=== PATIENT | male | born 1940 | race Caucasian/White ===

== ENCOUNTER → 2018-03-31 09:25 | Outpatient (CLI) | payer OTHER, SELFPAY ==
[2018-03-31 11:27] LABS: ALT 26 U/L (12-78); AST 16 U/L (15-37); Albumin 3.8 g/dL (3.4-5.0); Alkaline Phosphatase 71 U/L (46-116); Anion Gap 10.1 mmol/L (3-11); BUN 17 mg/dL (7-18); CO2 28.9 mmol/L (21.0-32.0); CREATININE 1.21 mg/dL (0.70-1.30); Calcium 8.4 mg/dL (8.5-10.1); Chloride 104 mmol/L (98-107); Cholesterol 109 mg/dL (50-200); Estimated GFR 58.15 (mL/min/1.73m2); Glucose 146 mg/dL (70-100); HDL Cholesterol 41 mg/dL (40-60); LDL CHOLESTEROL 62 mg/dL (<100); Potassium 4.1 mmol/L (3.5-5.1); Sodium 143 mmol/L (136-145); Total Protein 7.1 g/dL (6.4-8.2); Triglyceride 72 mg/dL (30-150)
[2018-03-31 11:31] LABS: COMMENT (LAB VIEW ONLY) 141.65 mg/dL; Microalb ug/mg Crea 14.3 ug/mg Cr
[2018-03-31 11:38] LABS: Hemoglobin A1C 7.6 % (4.5-6.2)
== END ==
PROVIDERS: PCP Nurse Practitioner; Visit Provider Nurse Practitioner
DX: E11.9 Type 2 diabetes mellitus without complications (principal); E78.5 Hyperlipidemia, unspecified; I10 Essential (primary) hypertension
CPT/HCPCS: 36415; 80053; 80061; 83721; 82043; 82570; 83036

== ENCOUNTER 2019-03-04 09:38 | Outpatient (CLI) | payer OTHER, SELFPAY ==
[2019-03-04 10:04] LABS: HCT 42.2 % (40.0-50.0); HGB 14.2 g/dL (13.5-17.5); Mean Corp. HGB Concentration 33.6 g/dL (32.0-36.0); Mean Corpuscular Hemoglobin 32.1 pg (27.0-33.0); Mean Corpuscular Volume 95.5 fL (80-95); Mean Platelet Volume 10.9 fL (8.0-11.0); Platelet Count 212 x1000/uL (130-400); RBC 4.42 m/cumm (4.50-6.00); RBC Distribution Width 13.2 % (11.8-14.1); White Blood Cell Count 7.16 k/cumm (4.4-10.8)
[2019-03-04 10:26] LABS: COMMENT (LAB VIEW ONLY) 108.52 mg/dL; Microalb ug/mg Crea 14.6 ug/mg Cr
[2019-03-04 12:42] LABS: ALT 34 U/L (12-78); AST 16 U/L (15-37); Albumin 3.7 g/dL (3.4-5.0); Alkaline Phosphatase 77 U/L (46-116); Anion Gap 11.5 mmol/L (3-11); BUN 23 mg/dL (7-18); Bilirubin, Total 0.6 mg/dL (0.2-1.0); CO2 26.5 mmol/L (21.0-32.0); CREATININE 1.23 mg/dL (0.70-1.30); Calcium 8.6 mg/dL (8.5-10.1); Calculated LDL 69 mg/dL; Chloride 105 mmol/L (98-107); Cholesterol 115 mg/dL (50-200); Estimated GFR 56.91 (mL/min/1.73m2); Glucose 177 mg/dL (70-100); HDL Cholesterol 39 mg/dL (40-60); Potassium 4.3 mmol/L (3.5-5.1); Sodium 143 mmol/L (136-145); Total Protein 6.9 g/dL (6.4-8.2); Triglyceride 36 mg/dL (30-150)
== END 2019-03-04 09:58 ==
PROVIDERS: PCP Nurse Practitioner; Visit Provider Nurse Practitioner
DX: E11.9 Type 2 diabetes mellitus without complications (principal); E66.9 Obesity, unspecified; E78.5 Hyperlipidemia, unspecified; I10 Essential (primary) hypertension; R71.8 Other abnormality of red blood cells
CPT/HCPCS: 36415; 80053; 80061; 83721; 85027; 82043; 82570

== ENCOUNTER → 2019-06-11 10:50 | Outpatient (BNVA) | payer OTHER, SELFPAY | PROVIDERS: PCP Nurse Practitioner; Referring Provider Nurse Practitioner; Visit Provider Physical Therapy Assistant | DX: Z12.11 Encounter for screening for malignant neoplasm of colon (principal); Z86.010 Personal history of colon polyps; E11.9 Type 2 diabetes mellitus without complications; Z79.84 Long term (current) use of oral hypoglycemic drugs; I10 Essential (primary) hypertension ==

== ENCOUNTER 2019-07-01 08:05 | Day surgery (SDC) | payer OTHER, SELFPAY ==
--- NOTE | 2019-06-30 19:19 | W.COLOREPORT ---
Date of service: 07/01/19 Colonoscopy Report Date of procedure: 07/01/19 Pre-op diagnosis general: hx of A. polyps Post-op diagnosis procedure note: other (few sm diveric. no polyps) Procedure: CE Surgeon: Louisa Velazquez Anesthesia proc note operative: GETA Estimated blood loss (mL): 0 Pathology: none sent Disposition: same day Prep: Miralax/Dulcolax Retraction Time: 11 mins Procedure Description: INDICATIONS: The patient is here today at the request of their PCP and is here today for a colonoscopy for hx of A. polyps. Informed consent was obtained, explaining the risks and benefits of the procedure, including but not limited to bleeding, infection, perforation, aspiration, complications from the anesthesia. DESCRIPTION OF PROCEDURE: The patient was brought to the endoscopy suite and placed in left lateral decubitus position. Anesthesia was administered per the Department of Anesthesia, with constant monitoring of all vital signs. Digital rectal exam was performed prior to beginning the procedure and revealed no anal or rectal pathology. There was good sphincter tone. No internal or external hemorrhoids are noted. There is some mild excoriation to the anal region. The previously lubricated Olympus was inserted in the rectum and insufflation was begun. The scope was passed up through the recto-sigmoid valves, through the sigmoid and transverse, down the ascending and the cecum was achieved at 90 cm. Good prep was noted. The scope was then withdrawn. There were no AVM,s , or polyps noted. He has a few small scattered diverticula in the sigmoid colon. He has no signs of active bleeding or infection. The mucosa and vasculature appears pink healthy and normal. The patient tolerated the procedure without complicated and transferred to the recovery room in stable condition. Colonoscopy does not need to be repeated. Louisa Velazquez DO
[2019-07-01 08:10] VITALS: BP 140/68; PULSE 80; RESP 16; TEMP 36.7; O2SAT 96
[2019-07-01] MEDS: Lactated Ringers 1,000 ML 80 ML IV (08:43)
--- NOTE | 2019-07-01 11:37 | W.PM.DSUDISC ---
Discharge Plan Disposition Condition: Good Discharge Details Reason For Visit: HX OF COLONIC POLYPS Attending Provider: Louisa Velazquez Primary Care Provider: Ngozi Silva Home Meds and New Rx's Prescriptions: Continued metformin 500 mg tablet 1,000 mg PO BID Qty: 360 RF: 3 triamcinolone acetonide 15 GM cream 1 gm Topical BID Qty: 15 RF: 0 (DME) OneTouch Ultra Blue Test Strip strip See Dose Instructions .ROUTE .MEDSUPPLY Qty: 100 RF: 6 atorvastatin 40 mg tablet 40 mg PO DAILY Qty: 90 RF: 3 hydrochlorothiazide 25 mg tablet 25 mg PO DAILY Qty: 90 RF: 3 lisinopril 10 mg tablet 10 mg PO DAILY Qty: 90 RF: 3 Discontinued polyethylene glycol 3350 17 gram/dose powder 238 g PO ONCE Qty: 238 RF: 0 bisacodyl [Dulcolax (bisacodyl)] 5 mg tablet,delayed release (DR/EC) 5 mg PO ONCE Qty: 4 RF: 0 aspirin 81 mg tablet,delayed release (DR/EC) 81 mg PO DAILY RF: 0 Discharge Instructions Instructions: High Fiber Diet (DC) Additional Instructions: Findings:few small scattered diverticula no polyps Follow up: does not require any further colonoscopy's Please call if you develop: fevers >101.5 Nausea or Vomiting Abdominal pain that is not transient DAY SURGERY UNIT POST COLONOSCOPY INSTRUCTIONS 1. Because there will be medication in your system for the next 24 hours, you may feel a little sleepy. Your coordination will be affected. Therefore: a. Do not drive or operate dangerous equipment for 24 hours. b. Do not drink alcohol beverages for 24 hours (not even beer). c. Plan to go home and rest for the day. 2. Generally there are no restrictions on your activity after a day or so has gone by, but you may feel a bit fatigued for a few days. 3 After you arrive home you may have a light meal and return to a normal diet as you can tolerate it without feeling sick to your stomach. 4. After surgery, you may feel pain or discomfort. This should be only transient, but if it persists please contact your doctor. 5. If there are any questions regarding the findings of your procedure, please feel free to contact your doctor. 6. If you are unable to contact your doctor with a problem, contact the hospital at [phone]. 7. Continue all your regular medications unless directed otherwise. I understand the above instructions and have no questions. Signature of Patient or Responsible Adult Escort Date/Time Name of Responsible Adult Escort Signature of Nurse Date/Time DS: Diagnosis Discharge Diagnosis (1) Tubular adenoma of colon: Status: Acute (2) Diverticula of colon: Status: Acute
[2019-07-01 11:52] VITALS: BP 112/62; PULSE 68; RESP 16; TEMP 36.7; O2SAT 95
== END 2019-07-01 12:47 ==
PROVIDERS: PCP Nurse Practitioner; Visit Provider Surgery
PROC: 0DJD8ZZ Inspection of Lower Intestinal Tract, Via Natural or Artificial Opening Endoscopic (ICD-10-PCS; CPT 45378; principal; 2019-07-01 09:15)
DX: K57.30 Diverticulosis of large intestine without perforation or abscess without bleeding; Z12.11 Encounter for screening for malignant neoplasm of colon; Z86.010 Personal history of colon polyps; I10 Essential (primary) hypertension; E11.9 Type 2 diabetes mellitus without complications; Z79.84 Long term (current) use of oral hypoglycemic drugs
CPT/HCPCS: G0121

== ENCOUNTER 2019-10-19 00:25 | Outpatient (CLI) | payer OTHER, SELFPAY ==
--- NOTE | 2019-10-19 06:45 | DI.US_ITS ---
EXAM: US AAA SCREENING CLINICAL HISTORY: SCREENING FOR AAA, EX SMOKER, Z87.891 COMPARISON: No exams were available for comparison FINDINGS: Abdominal Aorta: Proximal: 2.8 x 2.6 cm Mid: 2.0 x 1.8 cm Distal: 1.9 x 1.7 cm Iliac's: Right: 1 x 1.3 cm Left: 1 x 1.2 cm The doppler velocities are within normal limits. IMPRESSION: No evidence of abdominal aortic aneurysm. DATA REPOSITORY:
[2019-10-19 08:48] LABS: ALT 26 U/L (16-63); AST 18 U/L (15-37); Albumin 3.8 g/dL (3.4-5.0); Alkaline Phosphatase 65 U/L (46-116); Anion Gap 7.2 mmol/L (3-11); BUN 27 mg/dL (7-18); Bilirubin, Total 0.9 mg/dL (0.2-1.0); CO2 28.8 mmol/L (21.0-32.0); CREATININE 1.21 mg/dL (0.70-1.30); Calcium 8.6 mg/dL (8.5-10.1); Calculated LDL 73 mg/dL (<100); Chloride 107 mmol/L (98-107); Cholesterol 125 mg/dL (<200); Glucose 168 mg/dL (74-106); HDL Cholesterol 39 mg/dL (40-60); Sodium 143 mmol/L (136-145); Total Protein 6.9 g/dL (6.4-8.2); Triglyceride 67 mg/dL (<150)
== END 2019-10-19 00:45 ==
PROVIDERS: PCP Nurse Practitioner; Visit Provider Nurse Practitioner
DX: Z13.6 Encounter for screening for cardiovascular disorders (principal); Z87.891 Personal history of nicotine dependence; E11.9 Type 2 diabetes mellitus without complications; E78.5 Hyperlipidemia, unspecified; I10 Essential (primary) hypertension
CPT/HCPCS: 36415; 76706; 80053; 80061

== ENCOUNTER 2020-07-11 13:41 | Outpatient (REF) | payer OTHER, SELFPAY ==
[2020-07-11 19:39] LABS: COMMENT (LAB VIEW ONLY) 115.81 mg/dL; Microalb ug/mg Crea 9.8 ug/mg Cr
== END 2020-07-11 14:01 ==
LOC: LBN 13:41
PROVIDERS: PCP Nurse Practitioner; Visit Provider Nurse Practitioner
DX: E11.9 Type 2 diabetes mellitus without complications (principal)
CPT/HCPCS: 82043; 82570

== ENCOUNTER 2020-10-11 04:31 | Outpatient (CLI) | payer OTHER, SELFPAY ==
[2020-10-11 09:32] LABS: HCT 39.9 % (40.0-50.0); HGB 13.4 g/dL (13.5-17.5); MCH 32.3 pg (27.0-33.0); MCHC 33.6 % (32.0-36.0); MCV 96.1 fL (80-95); MPV 10.8 fL (8.0-11.0); Platelet Count 223 10^3/uL (130-400); RBC 4.15 10^6/uL (4.36-5.78); RDW 13.2 % (11.8-14.1); RDW-SD 46.8 fL; WBC 7.78 10^3/uL (4.4-10.8)
[2020-10-11 09:35] LABS: Hemoglobin A1C 6.6 % (<5.7)
[2020-10-11 10:08] LABS: ALT 28 U/L (16-63); AST 18 U/L (15-37); Albumin 3.6 g/dL (3.4-5.0); Alkaline Phosphatase 77 U/L (46-116); Anion Gap 7.3 mmol/L (3-11); BUN 25 mg/dL (7-18); Bilirubin, Total 1.1 mg/dL (0.2-1.0); CO2 28.7 mmol/L (21.0-32.0); CREATININE 1.2 mg/dL (0.70-1.30); Calcium 8.9 mg/dL (8.5-10.1); Calculated LDL 50 mg/dL (<100); Chloride 108 mmol/L (98-107); Cholesterol 116 mg/dL (<200); Glucose 107 mg/dL (74-106); HDL Cholesterol 38 mg/dL (40-60); Sodium 144 mmol/L (136-145); Total Protein 6.9 g/dL (6.4-8.2); Triglyceride 144 mg/dL (<150)
== END 2020-10-11 04:32 | disposition home or self-care (01) ==
LOC: LBO 04:31
PROVIDERS: PCP Nurse Practitioner; Visit Provider Nurse Practitioner
DX: E78.5 Hyperlipidemia, unspecified (principal); E11.9 Type 2 diabetes mellitus without complications; I10 Essential (primary) hypertension
CPT/HCPCS: 36415; 80053; 80061; 85027; 83036

== ENCOUNTER 2021-11-07 02:58 | Outpatient (CLI) | payer MEDICARE, SELFPAY ==
[2021-11-07 08:56] LABS: HCT 39.7 % (40.0-50.0); HGB 12.7 g/dL (13.5-17.5); MCH 31.8 pg (27.0-33.0); MCV 99.5 fL (80-95); MPV 10.6 fL (8.0-11.0); Platelet Count 200 10^3/uL (130-400); RBC 3.99 10^6/uL (4.36-5.78); RDW-SD 48.1 fL; WBC 7.33 10^3/uL (4.4-10.8)
[2021-11-07 09:19] LABS: Hemoglobin A1C 7.1 % (<5.7)
[2021-11-07 10:07] LABS: ALT 30 U/L (16-63); AST 16 U/L (15-37); Albumin 3.7 g/dL (3.4-5.0); Alkaline Phosphatase 78 U/L (46-116); Anion Gap 6.3 mmol/L (3-11); BUN 18 mg/dL (7-18); Bilirubin, Total 0.9 mg/dL (0.2-1.0); CO2 29.7 mmol/L (21.0-32.0); CREATININE 1.3 mg/dL (0.70-1.30); Calcium 8.5 mg/dL (8.5-10.1); Chloride 108 mmol/L (98-107); Estimated GFR 53.12 (mL/min/1.73m2); Glucose 146 mg/dL (74-106); Potassium 4.6 mmol/L (3.5-5.1); Sodium 144 mmol/L (136-145); Total Protein 6.7 g/dL (6.4-8.2)
[2021-11-08 14:28] LABS: Calculated LDL 65 mg/dL (<100); Cholesterol 124 mg/dL (<200); HDL Cholesterol 40 mg/dL (40-60); Triglyceride 95 mg/dL (<150)
== END 2021-11-07 02:59 | disposition home or self-care (01) ==
LOC: LBO 02:59
PROVIDERS: PCP Nurse Practitioner; Visit Provider Nurse Practitioner
DX: E11.9 Type 2 diabetes mellitus without complications (principal); E78.5 Hyperlipidemia, unspecified; I10 Essential (primary) hypertension
CPT/HCPCS: 36415; 80053; 80061; 85027; 83036

== ENCOUNTER 2022-06-21 14:25 | Emergency (ER) | payer MEDICARE, SELFPAY ==
[2022-06-21 14:59] VITALS: BP 130/57; PULSE 92; RESP 18; TEMP 37.6; O2SAT 97
--- NOTE | 2022-06-21 15:00 | DI.RAD_ITS ---
Exam(s) XR LUMBAR SPINE AP, LAT EXAM: XR LUMBAR SPINE AP, LAT CLINICAL HISTORY: fall one month ago, back pain. TECHNIQUE: 2D digital imaging was performed. COMPARISON: MR MRI - LUMBAR SPINE WO CONTRAST from 11/03/2008 CR LUMBAR SPINE COMPLETE from 07/22/2011 FINDINGS: 3 views No evidence of fracture or listhesis. Disc space narrowing at L4-5 and L5-S1 level appears stable. Bone density is age-appropriate. No osseous lesions. Calcification is noted in the abdominal aorta and iliac arteries. IMPRESSION: As above but minimal change from prior study 2010. DATA REPOSITORY: RADIATION DOSE DELIVERED:
--- NOTE | 2022-06-21 15:13 | W.ED.GENAD ---
Discharge Plan Disposition Patient Disposition: HOME Condition: Stable Discharge Details Clinical Impression: Narrowing of lumbar intervertebral disc space Primary Care Provider: Ngozi Silva ED Provider: Ralph Alicia Home Meds and New Rx's Prescriptions: New lidocaine [Lidoderm] 5 % adhesive patch,medicated 1 patch topical DAILY PRNQty: 15 0RF Rx Instructions: leave on most painful area for up to 12 hrs cyclobenzaprine 5 mg tablet 5 mg PO QHS PRN (Reason: muscle spasm) Qty: 7 0RF No Action tamsulosin 0.4 mg capsule 0.8 mg PO DAILY Qty: 180 3RF triamcinolone acetonide 15 GM cream 1 gm Topical BID Qty: 15 0RF Rx Instructions: Apply to rash between 3rd and 4th fingers left hand. (DME) GertrudeTouch Ultra Blue Test Strip Strip See Dose Instructions .ROUTE .MEDSUPPLY Qty: 100 6RF Dose Instruction: As directed Rx Instructions: Test TID and PRN. citalopram 20 mg tablet See Rx Instructions .ROUTE .COMPLEX Qty: 90 3RF Dose Instruction: TAKE ONE TABLET BY MOUTH EVERY DAY Rx Instructions: TAKE ONE TABLET BY MOUTH EVERY DAY glipizide 2.5 mg tablet extended release 24hr 2.5 mg PO DAILY Qty: 90 3RF lisinopril 10 mg tablet See Rx Instructions .ROUTE .COMPLEX Qty: 90 3RF Dose Instruction: TAKE ONE TABLET BY MOUTH EVERY DAY Rx Instructions: TAKE ONE TABLET BY MOUTH EVERY DAY atorvastatin 40 mg tablet See Rx Instructions .ROUTE .COMPLEX Qty: 90 3RF Dose Instruction: TAKE ONE TABLET BY MOUTH EVERY DAY Rx Instructions: TAKE ONE TABLET BY MOUTH EVERY DAY metformin 500 mg tablet See Rx Instructions .ROUTE .COMPLEX Qty: 360 3RF Dose Instruction: TAKE TWO TABLETS BY MOUTH TWICE A DAY Rx Instructions: TAKE TWO TABLETS BY MOUTH TWICE A DAY hydrochlorothiazide 25 mg tablet See Rx Instructions .ROUTE .COMPLEX Qty: 90 3RF Dose Instruction: TAKE ONE TABLET BY MOUTH EVERY DAY Rx Instructions: TAKE ONE TABLET BY MOUTH EVERY DAY Medical Decision Making 81-year-old male presents with 1 month of lower back discomfort radiating down both legs worse with bending forward and standing from a seated position, no bowel or bladder incontinence afebrile nontoxic no midline spinal tenderness, of note patient did have a fall 1 month ago in the [facility], has been ambulatory since this event. Patient has no strength and sensation bilateral lower extremities, full range of motion no signs of trauma. Likely lumbar nerve impingement leading to symptoms of sciatica. Low suspicion for acute spinal cord impingement or spinal fracture however given age and persistent symptomatology will obtain lumbar x-ray, will trial anti-inflammatory with dexamethasone and Lidoderm patch. Likely discharge home with follow-up 16: 58 resting comfortably no acute distress. Lumbar spine age-related changes without acute fracture. Patient given home care instructions and return precautions. HPI General Date/Time Provider Initiated Documentation: 06/21/22 15:12. HPI Narrative: 81-year-old male presents with 1 month of lower back discomfort rating to bilateral lower extremities, he describes them as quick painful joints down both legs worse with bending over and standing up. Denies bowel or bladder incontinence. Endorses a fall approximately 1 to 2 months ago in the [facility]. Has been ambulatory without issue. Related Data Home Medications Medication Instructions Recorded Confirmed triamcinolone acetonide 0.1 % 1 gm topical BID #15 grams 09/29/17 06/21/22 topical cream blood sugar diagnostic #100 ea 10/15/21 06/21/22 tamsulosin 0.4 mg capsule 0.8 mg PO DAILY #180 caps 11/12/21 06/21/22 citalopram 20 mg tablet See Rx Instructions .Route 12/11/21 06/21/22 .COMPLEX #90 tabs glipizide 2.5 mg tablet, extended 2.5 mg PO DAILY #90 tabs 03/19/22 06/21/22 release 24 hr atorvastatin 40 mg tablet See Rx Instructions .Route 04/22/22 06/21/22 .COMPLEX #90 tabs hydrochlorothiazide 25 mg tablet See Rx Instructions .Route 04/22/22 06/21/22 .COMPLEX #90 tabs lisinopril 10 mg tablet See Rx Instructions .Route 04/22/22 06/21/22 .COMPLEX #90 tabs metformin 500 mg tablet See Rx Instructions .Route 04/22/22 06/21/22 .COMPLEX #360 tabs cyclobenzaprine 5 mg tablet 5 mg PO QHS PRN muscle spasm #7 06/21/22 tabs lidocaine 5 % topical patch 1 patch topical DAILY PRN #15 ea 06/21/22 (Lidoderm) Previous Rx's Medication Instructions Recorded triamcinolone acetonide 0.1 % 1 gm topical BID #15 grams 09/29/17 topical cream blood sugar diagnostic #100 ea 10/15/21 tamsulosin 0.4 mg capsule 0.8 mg PO DAILY #180 caps 11/12/21 citalopram 20 mg tablet See Rx Instructions .Route 12/11/21 .COMPLEX #90 tabs glipizide 2.5 mg tablet, extended 2.5 mg PO DAILY #90 tabs 03/19/22 release 24 hr atorvastatin 40 mg tablet See Rx Instructions .Route 04/22/22 .COMPLEX #90 tabs hydrochlorothiazide 25 mg tablet See Rx Instructions .Route 04/22/22 .COMPLEX #90 tabs lisinopril 10 mg tablet See Rx Instructions .Route 04/22/22 .COMPLEX #90 tabs metformin 500 mg tablet See Rx Instructions .Route 04/22/22 .COMPLEX #360 tabs cyclobenzaprine 5 mg tablet 5 mg PO QHS PRN muscle spasm #7 06/21/22 tabs lidocaine 5 % topical patch 1 patch topical DAILY PRN #15 ea 06/21/22 (Lidoderm) Allergies Allergy/AdvReac Type Severity Reaction Status Date / Time No Known Allergies Allergy Verified 06/21/22 15:03 General Stated Complaint: Nk/Back Pain ALISSA: 4 Review of Systems Narrative: Review of Systems Constitutional: negative Eyes: negative ENT: negative Cardiovascular: negative Respiratory: negative Gastrointestinal: negative : negative Musculoskeletal: Back pain, leg pain Skin: negative Neurologic: negative Psych: negative PFSH All Active Problems (Updated 06/21/22 @ 17:00 by Ralph Alicia MD) Narrowing of lumbar intervertebral disc space (Acute) Depression (Chronic) Depressive disorder (Chronic 10/22/11) Urinary hesitancy due to benign prostatic hyperplasia (Acute) Diverticula of colon (Acute) Tubular adenoma of colon (Acute 06/26/15) Type II diabetes mellitus (Acute 12/29/12) A1C goal 7.5 Erectile dysfunction (Acute 10/22/11) Essential hypertension (Acute 12/29/12) FRS 30% Hyperlipidemia (Acute 12/24/12) PCEq risk 40%;baseline LDL 140 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) RBC microcytosis (Acute 12/30/12) NL B12 04/2005 Obesity (Acute 12/31/13) Other and unspecified hyperlipidemia (Acute 12/24/12) PCEq risk 40%;baseline LDL 140 Medical History (Updated 06/21/22 @ 17:00 by Ralph Alicia MD) Colonoscopy refused (04/06/18) Depressive disorder, not elsewhere classified (10/22/11) High cholesterol Hypertension Surgical History (Updated 07/23/19 @ 14:01 by Idania Park RN) Arthroscopy L knee History of colonoscopy (~06/2019) Social History (Updated 10/12/19 @ 09:46 by Marlin Grubbs RN) Smoking/Tobacco Use Status: Former Tobacco Use Smoking risk assessment performed?: Yes Alcohol Intake: current Drug use: Never Substance use type: does not use What type of physical activity do you participate in: other Details: snow shoveling Do you feel safe at home: Yes Do you feel safe in your relationship?: Yes Exam Narrative Exam Narrative: Physical Examination General: alert, awake, cooperative, resting comfortably, no acute distress HEENT: normocephalic, atraumatic; PERRL, EOM intact, conjunctiva normal; no nasal discharge; moist mucous membranes, oral and pharyngeal mucosa normal, tolerating secretions Neck: supple, trachea midline; full ROM Chest: normal to inspection Respiratory: normal respiratory effort, speaking in full sentences, clear to auscultation, no wheezing, rales or rhonchi Cardiac: regular rate, regular rhythm, S1S2 intact, no murmurs rubs or gallops GI: abdomen soft, non-tender, non-distended; no palpable mass or hepatosplenomegaly Back: No midline spinal tenderness crepitus or deformity Skin: no lesions, rashes or trauma appreciated Neuro: AAOx3, normal speech, moving all extremities; 5 out of 5 strength upper and lower extremities, ambulatory without assistance, reproduction of symptoms when going from a seated to a standing position or bending forward Extremities: Movement/range of motion intact bilateral lower extremities no signs of trauma Psych: Appropriate mood and affect Course Vital Signs Vital signs: Vital Signs Temperature 37.6 C H 06/21/22 14:59 Pulse 92 H 06/21/22 14:59 Respiratory Rate 18 06/21/22 14:59 Blood Pressure 130/57 L 06/21/22 14:59 Pulse Oximetry 97 06/21/22 14:59 Temperature 37.6 C H 06/21/22 14:59 Temperature Source Tympanic 06/21/22 14:59 Pulse 92 H 06/21/22 14:59 Respiratory Rate 18 06/21/22 14:59 Respiratory Effort Non-Labored 06/21/22 15:04 Blood Pressure 130/57 L 06/21/22 14:59 Blood Pressure Position Sitting 06/21/22 14:59 Pulse Oximetry 97 06/21/22 14:59 Oxygen Delivery Method Room Air 06/21/22 14:59 Oxygen Flow Rate 0 06/21/22 14:59 Pain Level 9 06/21/22 15:04
[2022-06-21] MEDS: Dexamethasone 10 MG/ML VIAL IM (15:55)
[2022-06-21] MEDS: Lidocaine 5% Patch 1 PATCH TP (15:55)
== END 2022-06-21 17:18 | disposition home or self-care (01) ==
PROVIDERS: Emergency Provider Emergency Medicine; PCP Nurse Practitioner
DX: M48.061 Spinal stenosis, lumbar region without neurogenic claudication (principal); M54.50 Low back pain, unspecified
CPT/HCPCS: 96372; 99284; 72100; 99283; J1100

== ENCOUNTER 2022-11-06 01:55 | Outpatient (CLI) | payer MEDICARE, SELFPAY ==
[2022-11-06 08:25] LABS: Abs Immature Grans 0.03 10^3/uL (0.0-0.06); Absolute Basophil Count 0.05 10^3/uL (0.0-0.2); Absolute Eosinophil Count 0.61 10^3/uL (0.0-0.7); Absolute Lymphocyte Count 2.52 10^3/uL (1.2-3.4); Absolute Monocyte Count 0.57 10^3/uL (0.1-0.8); Absolute Neutrophil Count 4.39 10^3/uL (1.2-6.7); Basophils % 0.6; Eosinophils % 7.5; HCT 39.6 % (40.0-50.0); HGB 13.5 g/dL (13.5-17.5); Immature Grans % 0.4; Lymphocytes % 30.8; MCH 32.3 pg (27.0-33.0); MCHC 34.1 % (32.0-36.0); MCV 95 fL (80-95); MPV 10.9 fL (8.0-11.0); Neutrophils % 53.7; Platelet Count 195 10^3/uL (130-400); RBC 4.18 10^6/uL (4.36-5.78); RDW 12.4 % (11.8-14.1); RDW-SD 43.3 fL; WBC 8.17 10^3/uL (4.4-10.8)
[2022-11-06 08:34] LABS: ALT 23 U/L (16-63); AST 14 U/L (15-37); Albumin 3.7 g/dL (3.4-5.0); Alkaline Phosphatase 87 U/L (46-116); Anion Gap 8.6 mmol/L (3-11); BUN 26 mg/dL (7-18); Bilirubin, Total 0.8 mg/dL (0.2-1.0); CO2 29.4 mmol/L (21.0-32.0); CREATININE 1.6 mg/dL (0.70-1.30); Calcium 8.9 mg/dL (8.5-10.1); Calculated LDL 58 mg/dL (<100); Chloride 102 mmol/L (98-107); Cholesterol 134 mg/dL (<200); Estimated GFR 43.02 (mL/min/1.73m2); Glucose 273 mg/dL (74-106); HDL Cholesterol 44 mg/dL (40-60); Potassium 3.9 mmol/L (3.5-5.1); Sodium 140 mmol/L (136-145); Total Protein 7.4 g/dL (6.4-8.2); Triglyceride 161 mg/dL (<150)
== END 2022-11-06 01:56 | disposition home or self-care (01) ==
LOC: LBO 01:55
PROVIDERS: PCP Nurse Practitioner; Visit Provider Nurse Practitioner
DX: I10 Essential (primary) hypertension (principal); E11.9 Type 2 diabetes mellitus without complications; E78.5 Hyperlipidemia, unspecified; J45.909 Unspecified asthma, uncomplicated; E66.9 Obesity, unspecified
CPT/HCPCS: 36415; 80053; 80061; 85025

== ENCOUNTER 2023-01-07 11:18 | Outpatient (CLI) | payer MEDICARE, SELFPAY ==
[2023-01-07 11:35] LABS: Anion Gap 10.4 mmol/L (3-11); BUN 25 mg/dL (7-18); CO2 26.6 mmol/L (21.0-32.0); CREATININE 1.6 mg/dL (0.70-1.30); Chloride 105 mmol/L (98-107); Estimated GFR 42.75 (mL/min/1.73m2); Glucose 173 mg/dL (74-106); Potassium 4.5 mmol/L (3.5-5.1); Sodium 142 mmol/L (136-145)
== END 2023-01-07 11:19 | disposition home or self-care (01) ==
LOC: LBO 11:23
PROVIDERS: PCP Nurse Practitioner; Visit Provider Nurse Practitioner
DX: E11.9 Type 2 diabetes mellitus without complications (principal); I10 Essential (primary) hypertension
CPT/HCPCS: 36415; 80048

== ENCOUNTER → 2023-01-23 13:44 | Outpatient (BNVA) | payer MEDICARE, SELFPAY | PROVIDERS: PCP Nurse Practitioner; Referring Provider Nurse Practitioner; Visit Provider Physical Therapy Assistant | DX: Z12.11 Encounter for screening for malignant neoplasm of colon (principal); Z86.010 Personal history of colon polyps ==

== ENCOUNTER 2023-01-31 09:45 | Day surgery (SDC) | payer MEDICARE, SELFPAY ==
--- NOTE | 2023-01-30 20:53 | W.COLOREPORT ---
Date of service: 01/31/23 Time of Service: 11:26 Colonoscopy Report Date of procedure: 01/31/23 Pre-op diagnosis general: serrated adenoma Post-op diagnosis procedure note: other (Polyps and diverticula) Surgeon: Louisa Velazquez Anesthesia Type: General:No Airway Estimated blood loss (mL): 1 Pathology: other Complications: None Disposition: same day Prep: Miralax/Dulcolax Retraction Time: 12 Procedure Description: After informed consent was obtained the patient was taken to the procedure room and placed in a left decubitous position. Monitors were applied and a time out was done. The patients name, date of , procedure, allergies to medications and metal in their body was reviewed. The patient was then sedated. Once sedated and comfortable a rectal exam was done. External exam was normal. Small external hemorrhoidal tags noted. internal exam revealed: a normal sphincter tone and no palpable masses. There are some old external hemorrhoidal tags noted. The scope was then introduced and retrofelexed. no internal hemorrhoids were identified. The scope was then advanced to the cecum difficulty. The TI and appendiceal orifice were identified. The prep was BBPS 3 in all segments for a total of 9. The scope was then slowly retracted over 12 minutes back into the rectum. He had 2 small AVMs that were noted. He has never had any bleeding, so these were not cauterized. One was in the right colon and one is in the sigmoid colon. He had a small flat 5 mm polyp in the rectum that is removed with cold forcep. All specimen is retrieved and no bleeding is noted. He had a few small scattered diverticula in the sigmoid colon. No signs of active bleeding or infection. Mucosa was otherwise pink and healthy. The scope was removed and the patient was woken up and taken back to Same day surgery in stable condition. The patient tolerated the procedure well and there were no immediate complications. Follow up: The patient does not require any further colonoscopies, unless they develop changes in bowel habits or other new gastrointestinal complaints.
--- NOTE | 2023-01-30 20:53 | W.PM.DSUDISC ---
Date of service: 01/31/23 Time of Service: 11:26 Discharge Plan Disposition Patient Disposition: Home Condition: Good Discharge Details Reason For Visit: colon scope Attending Provider: Louisa Velazquez Primary Care Provider: Ngozi Silva Home Meds and New Rx's Prescriptions: Continued acetaminophen [Tylenol Extra Strength] 500 mg tablet 500 mg PO BID Patient Comments: Pt states he takes 500mg BID and no back spasms as a result.HE metformin 500 mg tablet See Rx Instructions .ROUTE .COMPLEX Qty: 360 3RF Dose Instruction: TAKE TWO TABLETS BY MOUTH TWICE A DAY Rx Instructions: 1 tab daily as of 11/12/22 (down from 2 tabs daily). trazodone 50 mg tablet See Rx Instructions PO QHS PRN (Reason: sleep) Qty: 30 3RF Rx Instructions: 1/2 to 1 tab orally every day at bedtime PRN; tamsulosin 0.4 mg capsule 0.8 mg PO DAILY Qty: 180 3RF lidocaine [Lidoderm] 5 % adhesive patch,medicated 1 patch topical DAILY PRN (Reason: back pain) Qty: 15 2RF Rx Instructions: leave on most painful area for up to 12 hrs triamcinolone acetonide 15 GM cream 1 gm Topical BID Qty: 15 0RF Rx Instructions: Apply to rash between 3rd and 4th fingers left hand. glipizide 2.5 mg tablet extended release 24hr 2.5 mg PO DAILY Qty: 90 3RF lisinopril 10 mg tablet See Rx Instructions .ROUTE .COMPLEX Qty: 90 3RF Dose Instruction: TAKE ONE TABLET BY MOUTH EVERY DAY Rx Instructions: TAKE ONE TABLET BY MOUTH EVERY DAY atorvastatin 40 mg tablet See Rx Instructions .ROUTE .COMPLEX Qty: 90 3RF Dose Instruction: TAKE ONE TABLET BY MOUTH EVERY DAY Rx Instructions: TAKE ONE TABLET BY MOUTH EVERY DAY hydrochlorothiazide 25 mg tablet See Rx Instructions .ROUTE .COMPLEX Qty: 90 3RF Dose Instruction: TAKE ONE TABLET BY MOUTH EVERY DAY Rx Instructions: TAKE ONE TABLET BY MOUTH EVERY DAY (DME) blood sugar diagnostic Strip See Dose Instructions .ROUTE .MEDSUPPLY Qty: 100 6RF Dose Instruction: As directed Rx Instructions: Test TID and PRN. citalopram 20 mg tablet See Rx Instructions .ROUTE .COMPLEX Qty: 90 3RF Dose Instruction: TAKE ONE TABLET BY MOUTH EVERY DAY Rx Instructions: TAKE ONE TABLET BY MOUTH EVERY DAY cyclobenzaprine 5 mg tablet 5 mg PO QHS PRN (Reason: muscle spasm) Qty: 7 0RF Discontinued bisacodyl [Dulcolax (bisacodyl)] 5 mg tablet,delayed release (DR/EC) 5 mg PO ONCE Qty: 4 0RF Rx Instructions: Take per colonoscopy instructions provided by ordering providers office polyethylene glycol 3350 17 gram/dose powder 17 g PO ONCE Qty: 238 0RF Rx Instructions: Take per colonoscopy instructions provided by ordering providers office No Action Jardiance 25 mg tablet 25 mg PO DAILY Rx Instructions: Take 1/2 tab daily for 4 weeks, then 1 tab daily. Discharge Instructions Additional Instructions: [facility] Colonoscopy Post-Op Instructions Instructions for Everyone who is given Anesthesia: For your safety, please do the following for the next twenty-four (24) hours: *Do Not operate a motor vehicle (car, truck, motorcycle, etc.) *Do Not drink alcoholic beverages or use any recreational drugs for the first 24 hours or while taking pain medications. The medications in your body may have a reaction that can be dangerous. *Do Not make any important decisions or sign any important papers. Findings: Polyps x1 (small) diverticula-make sure you are moving your bowels on a regular basis and not straining to go to the bathroom Follow up: No further colonoscopies required 1. No lifting over 20 pounds or strenuous activity for the first 24 hours after your procedure. After 24 hours there are no restrictions on your activity but you may feel fatigued for a few days. 2. After you arrive home you may have a light meal and return to your normal diet as you can tolerate it without feeling sick to your stomach. 3. You may have a bloated, gaseous feeling in your belly (abdomen) after a colonoscopy. Passing gas and belching will help. Walking or lying down on your left side with your knees flexed may relieve the discomfort. Call the office at [phone] (Office) or [phone] (Hospital) right away if you notice any of the following: a.Vomiting of blood or ?coffee ground stools?. b.Rectal bleeding 1Tbsp, blood clots or continuous bleeding. c.Severe belly (abdominal) pain. d.A hard distended belly (abdomen) and an inability to pass gas. 4. Please don?t expect to have a normal BM (bowel movement) for 2-3 days after your procedure. 5. If there are questions regarding the findings of your procedure, please contact your doctor 6. If you are unable to contact your doctor with a problem, contact the hospital at [phone]. 7. Continue all your regular medications unless directed otherwise. I understand the above instructions and have no questions. Signature of Patient or Adult Escort Name of Responsible Adult Escort Signature of Nurse Date/Time DIVERTICULAR DISEASE OVERVIEW???A diverticulum is a pouch-like structure that can form through points of weakness in the muscular wall of the colon (ie, at points where blood vessels pass through the wall). Diverticulosis affects men and women equally. The risk of diverticular disease increases with age. It occurs throughout the world but is seen more commonly in developed countries. WHAT IS DIVERTICULAR DISEASE? Diverticulosis???Diverticulosis merely describes the presence of diverticula. Diverticulosis is often found during a test done for other reasons, such as flexible sigmoidoscopy, colonoscopy, or barium enema. Most people with diverticulosis have no symptoms and will remain symptom free for the rest of their lives. A person with diverticulosis may have diverticulitis, or diverticular bleeding. Diverticulitis???Inflammation of a diverticulum (diverticulitis) occurs when there is thinning and breakdown of the diverticular wall. This may be caused by increased pressure within the colon or by hardened particles of stool, which can become lodged within the diverticulum. The symptoms of diverticulitis depend upon the degree of inflammation present. The most common symptom is pain in the left lower abdomen. Other symptoms can include nausea and vomiting, constipation, diarrhea, and urinary symptoms such as pain or burning when urinating or the frequent need to urinate. Diverticulitis is divided into simple and complicated forms. ?Simple diverticulitis, which accounts for 75 percent of cases, is not associated with complications and typically responds to medical treatment without surgery. ?Complicated diverticulitis occurs in 25 percent of cases and usually requires surgery. Complications associated with diverticulitis can include the following: ?Abscess ? a localized collection of pus ?Fistula ? an abnormal tract between two areas that are not normally connected (eg, bowel and bladder) ?Obstruction ? a blockage of the colon ?Peritonitis ? infection involving the space around the abdominal organ ?Sepsis ? overwhelming body-wide infection that can lead to failure of multiple organs Diverticular bleeding???Diverticular bleeding occurs when a small artery located within a diverticulum is eroded and bleeds into the colon. Diverticular bleeding usually causes painless bleeding from the rectum. In approximately 50 percent of cases, the person will see maroon or bright red blood with bowel movements. Is bleeding with a bowel movement normal?It is not normal to see blood in a bowel movement; this can be a sign of several conditions, most of which are not serious (eg, hemorrhoids) but some of which are serious and require immediate treatment. Anyone who sees blood after a bowel movement should consult with their healthcare provider to determine if further testing or evaluation is needed. DIVERTICULOSIS AND DIVERTICULITIS DIAGNOSIS???Diverticulosis is often found during tests performed for other reasons. ?Barium?enema ? This is an x-ray study that uses barium in an enema to view the outline of the lower intestinal tract. This is an older test and has been largely replaced by computed tomography (CT) scan. ?Flexible sigmoidoscopy ? This is an examination of the inside of the sigmoid colon with a thin, flexible tube that contains a camera. ?Colonoscopy ? This is an examination of the inside of the entire colon. ?CT scan ? A CT scan is often used to diagnose diverticulitis and its complications. If diverticulitis (not just diverticulosis) is suspected, the above three tests should not be used because of the risk of perforation. TREATMENT Diverticulosis???People with diverticulosis who do not have symptoms do not require treatment. However, most clinicians recommend increasing fiber in the diet, which can help to bulk the stools and possibly prevent the development of new diverticula, diverticulitis, or diverticular bleeding. Fiber is not proven to prevent these conditions in all patients but may help to control recurrent episodes in some. Increase fiber???Fruits and vegetables are a good source of fiber.? Fiber content of packaged foods can be calculated by reading the nutrition label. Seeds and nuts???Patients with diverticular disease have historically been advised to avoid whole pieces of fiber (such as seeds, corn, and nuts) because of concern that these foods could cause an episode of diverticulitis. However, this belief is completely unproven. We do not suggest that patients with diverticulosis avoid seeds, corn, or nuts. Diverticulitis???Treatment of diverticulitis depends upon how severe your symptoms are. Home treatment???If you have mild symptoms of diverticulitis (mild abdominal pain, usually left lower abdomen), you can be treated at home with a clear liquid diet and oral antibiotics. However, if you develop one or more of the following signs or symptoms, you should seek immediate medical attention: ?Temperature >100.1?F (38?C) ?Worsening or severe abdominal pain ?An inability to tolerate fluids Hospital treatment???If you have moderate to severe symptoms, you may be hospitalized for treatment. During this time, you are not allowed to eat or drink; antibiotics and fluids are given into a vein. If you develop an abscess of the colon, you may require drainage of the abscess (usually performed by placing a drainage tube across the abdominal wall) or by surgically opening the affected area. Surgery???If you develop a generalized infection in the abdomen (peritonitis), you will usually require an emergency operation. A two-part operation may be necessary in some cases. ?The first operation involves removal of the diseased colon and creation of a colostomy. A colostomy is an opening between the colon and the skin, where a bag is attached to collect waste from the intestine. The lower end of the colon is temporarily sewed closed to allow it to heal. ?Approximately three to six months later, a second operation is performed to reconnect the two parts of the colon and close the opening in the skin. You are then able to empty your bowels through the rectum. Sometimes patients require up to a year to recover from the first operation, depending on how sick they were. In non-emergency situations, the diseased area of the colon can be removed and the two ends of the colon can be reconnected in one operation, without the need for a colostomy. Surgery versus medical therapy???An operation to remove the diseased area of the colon may be necessary if you do not improve with medical therapy. After an episode of uncomplicated diverticulitis, elective surgery is generally not required as the risk of another attack or requiring emergency surgery is low. However, patients with persistent symptoms attributable to diverticulitis, a history of complicated diverticulitis, or a compromised immune system should be evaluated for possible surgery to prevent another attack. In such patients, another attack has been associated with a higher risk of complications or . Of course, the decision will also depend in part upon your other medical conditions and ability to undergo surgery. In many cases, an elective operation can be performed laparoscopically, using small incisions, rather than the typical vertical (up and down) abdominal incision. Laparoscopic surgery usually allows you to recover more quickly and shortens the hospital stay. After diverticulitis resolves???After an episode of diverticulitis resolves, if you have not had a recent colonoscopy, the entire length of the colon should be evaluated to determine the extent of disease and to rule out the presence of abnormal lesions such as polyps or cancer. Recommended tests include colonoscopy, barium enema and sigmoidoscopy, or CT colonography. Diverticular bleeding???Most cases of diverticular bleeding resolve on their own. However, some people will need further testing or treatment to stop bleeding, which may include a colonoscopy, angiography (a treatment that blocks off the bleeding artery), bleeding scan, or surgery. DIVERTICULAR DISEASE PROGNOSIS Diverticulosis???Over time, diverticulosis may cause no problems or it may cause episodes of bleeding and/or diverticulitis. Approximately 15 to 25 percent of people with diverticulosis will develop diverticulitis, while 5 to 15 percent will develop diverticular bleeding. Diverticulitis???Approximately 85 percent of people with uncomplicated diverticulitis will respond to medical treatment, while approximately 15 percent of patients will need an operation. After successful treatment for a first attack of diverticulitis, one-third of patients will remain asymptomatic, one-third will have episodic cramps without diverticulitis, and one-third will go on to have a second attack of diverticulitis. The prognosis tends to remain similar following a second attack of diverticulitis. Only 10 percent of people remain symptom-free after a second attack. Subsequent attacks tend to be of similar severity, not increasing in severity as previously believed. High Fiber Diet What is Dietary Fiber? All fiber comes from plants, bushes, dom or trees.? Of course, the ones that we eat provide us with fruits, vegetables and grains.? There are many different types of fiber but the three that are most important to the health of the body are: Insoluble Fiber This fiber does not dissolve in water, nor is it fermented by the bacteria residing in the colon.? Rather, it retains water and in so doing, helps to promote a larger, bulkier and more regular bowel activity.? This, in turn, may be important in preventing disorder such as diverticulosis and hemorrhoids, and in sweeping out certain toxins and cancer causing carcinogens.? Sources of insoluble fiber are: ? whole grain wheat and other whole grains ? corn bran, including popcorn, unflavored and unsweetened ? nuts and seeds ? potatoes and the skins from most fruits from trees such as apples, bananas and avocados ? many green vegetables such as green beans, zucchini, celery and cauliflower ? some fruit plants such as tomatoes and kiwi Soluble Fiber These fibers are fermented or used by the colon bacteria as a food source or nourishment.? When these good bacteria grow and thrive, many health benefits occur in both the colon and the body.? Soluble fiber is present in some degree in most edible plant foods, but the ones with the most soluble fiber include: ? legumes such as peas and most beans, including soybeans ? oats, rye and barley ? many fruits such as berries, plums, apples bananas and pears ? certain vegetables such as broccoli and carrots ? most root vegetables ? psyllium husk supplement products Benefits of a High Fiber Diet The health benefits of a high fiber diet, consumed on a regular basis and reaching recommended amounts (below), are now fairly well-defined. There are some additional benefits in the early research stage with the prebiotic soluble fibers. What is now known regarding a high fiber diet include: Bowel Regularity A high fiber diet promotes regularity with a softer, bulkier and regular stool pattern. This decreases the chance of hemorrhoids, diverticulosis and perhaps colon cancer. Cholesterol and Reduced Triglycerides The soluble fibers are the ones that will reduce cholesterol levels when used on a regular basis. Psyllium husk and prebiotic soluble fiber will also reduce cholesterol. They may also reduce the incidence of coronary heart disease. Oats, flax seeds and legumes or beans are the recommended fibers. Colon Polyps and Cancer It is still not certain if a high fiber diet helps prevent colon cancer. Considerable research suggests that this may occur. Certainly it makes sense to increase regularity and so speed the movement of cancer causing carcinogens through the bowel. In addition, reducing a heavy meat diet reduces the bile flow from the liver in a favorable way. This, too, reduces the amount of carcinogens that reach and are manufactured in the colon. Finally, a high fiber diet, including prebiotic soluble fiber, increases the integrity and health of the wall of the colon. The risk of cancer may be reduced. Colon Wall Integrity A high fiber diet changes the bacterial makeup of the colon toward a more favorable balance. For instance, it is known that those people with obesity, diabetes type 2 and inflammatory bowel disease have a predominance of bad bacteria in the colon. This, in turn, may render the bowel wall weak and allow bacteria and, indeed, even toxins to seep through. A high fiber diet with a modest reduction in animal and meat products may return the bacterial makeup to a more positive balance. This, in particular, has been seen when the soluble fiber prebiotics are added to the diet. Blood Sugar Soluble fiber such as in legumes (beans), oats and in prebiotic fibers slows the absorption of blood sugar and so helps regulate the sugar in the blood. Insoluble fiber on a regular basis is associated with reduced risk of type 2 diabetes. Weight Loss High fiber diets are more filling and give a sense of fullness sooner than an animal and meat based diet does. In addition, the soluble prebiotic fibers have been shown to turn off the hunger hormones produced in the wall of the gut and to increase the hormones that give a sense of fullness. Those hormones are made in the wall of the gut. New medical research has shown that the bacterial makeup in the colon in overweight people is abnormal to the extent that they manufacture and absorb almost twice the number of calories through the colon wall as do normals. Prebiotic fibers (below) will help change this hormonal balancein a favorable way. Bacteria and the Function of the Colon The colon finishes the digestive process. Hopefully, the waste products move through in a nice regular manner. Insoluble fibers help this process by retaining water and so producing a bulkier, softer stool, which is easy to pass. The additional role of the colon is to provide a home for an enormous number of micro-organisms, mostly bacteria. Recent research has shown that there are over 1,000 species of bacteria with a total bacterial count ten times the number of cells in the body. These bacteria play a major role in keeping the colon wall itself healthy. In addition, these good bacteria produce a very strong immune system for the body. They significantly increase calcium absorption and bone density. They provide other documented benefits. It is the soluble fibers in the diet that are so effective in stimulating the growth of good colon bacteria. How Much is Enough? The amount of fiber in food is measured in grams.? National nutritional authorities recommend the following amounts of dietary fiber daily. Under Age 50? Over Age 50 Men? 38 grams? 30 grams Women??? 25 grams? 21 grams For a week or so, it is best to tally the amount of fiber you are consuming.? Boxed and packaged foods will have the amount of fiber per serving on the nutrition label. Which Fibers and Which Foods are Best? As noted, healthy fiber is only found in plants. The three major categories are whole grains, fruits and vegetables. Whole Grains Wheat, oats, barley, wild or brown rice, amaranth, buckwheat, bulgur, corn, millet, quinoa, rye, sorghum, teff and triticals. By far, wheat, oats and wild or brown rice are most common. Always buy whole grain products. White bread, baked goods and rolls almost always are made from wheat flour. Wheat flour is white because most of the fiber, vitamins and other nutrients have been removed. Try not buy enriched grains. What this means is that simple white flour has had vitamins added to it by the sales recruiting coordinator. The word, enriched, implies a good and healthy product. On the contrary, enriched means that most of the fiber has been removed and a few vitamins added. Fruits Fruits come from trees such as apple and pear or from bushes or dom. You should eat a wide variety of fruits, preferably with every meal. In many cases, the skin of a fruit such as apple will contain much of the insoluble fiber while the pulp contains most of the soluble fiber. To the extent possible, buy organic fruits as these will have little or no pesticides. Always wash fruit. Vegetables Eat a wide variety of vegetables. They should be a mainstay of lunch and dinners. Frozen vegetables retain as much nutrition and fiber as fresh vegetables. As with fruit, try to buy organic to reduce any residual pesticide ingestion. Wash fresh vegetables thoroughly. Cruciferous vegetables such as broccoli, [place] sprouts and cauliflower contain certain chemicals such as sulforaphane. This substance has very strong anti-cancer properties and should be eaten frequently. Legumes, Beans, Peas and Soybeans These vegetables have plenty of soluble fiber and should be part of a varied vegetable intake. Beans, in particular, contain a certain type of fiber that may lead to harmless gas or bloating. Nuts and Seeds These are rich sources of fiber and are a good substitute for sweets such as candies and baked sweet goods. While nuts and seeds are rich in fiber, they also contain vegetable fat and so can and do add calories. Read the Labels As noted, fresh and frozen foods are usually better.? They have good nutrition and few, if any, chemicals added to them.? When buying packaged foods and, in particular grains, look for three things: ? The first word on the label should be whole, such as whole wheat or whole grain. ? Check out the calories and the amount of fiber in a serving. ? How many and what other additives or chemicals are added.? Fewer is always better.? Do you know what each additive does?? Some are added not for the benefit of the cotton buyer but rather for manufacturers.? These could and do include sugar, artificial flavor, chemicals to prevent oxidation and spoilage, emulsifiers to blend the product.? You have to be a doctor of dental medicine. Fiber Facts, Nuggets and Pearls ? For breakfast you can easily get the day started well by using a high fiber, whole grain cereal.? Check the labels.? Add fruit such as blueberries and bananas.? If you are an egg eater, use whole wheat or grain toast.? Adding wheat germ gives you a good fiber kick. ? Always use whole grain or wheat with rolls and sandwiches.? Does your fast food store not have them?? Perhaps you look elsewhere.? Eating an occasional black canales or veggie burger provides variety. ? Snacks should consist of fruit and/or nuts.? While nuts are loaded with fiber, they are an energy rich food, meaning they have a lot of calories in a small packet. ? Fruit juices should contain pulp.? Clear juices such as clear orange, pear or apple juice contain little fiber and have a lot of fructose.? Prune juice is usually high in fiber. ? Homemade soups ? adding fresh or frozen vegetables to a chicken or vegetable stock is a good way to start homemade soup. ? Salads ? adding cooked and then chilled vegetables provide great flavoring to almost any salad.? Remember, a mcfarlane salad has lots of cooked corn in it.? Small slices of apples or oranges and nuts such as chopped walnuts or sliced almonds always adds taste, variety and fiber to almost any salad. ? Fruit ? Try to eat fruit of some type with almost every meal. ? Rethink how you place the various foods on your dinner plate.? Reducing the portions of the meat or animal food portion to the side with equal or more portions of vegetables, legumes and fruits portion always allows for more fiber.? There was never anything magic about making the meat or animal food portion the main part of the dinner plate.? Eating from smaller plates can, over time, trick your mind and chcf habit of using a dinner plate.? Again, there is nothing magic in an 11, 12, or 13 inch dinner plate. Fiber Supplements There are a variety of fiber supplements available on the food or pharmacy shelves. Psyllium This soluble plant fiber has been used in [place] for over 2,000 years. It is a soluble fiber with mucilage in it. This acts to retain a lot of water and also is fermented by colon bacteria. When 7 grams a day are used, it does lower cholesterol. Metamucil in various forms is psyllium. Methyl Cellulose All the cellulose products come from finely ground wood chips which are then treated in a variety of ways such as boiling in acids. Methyl cellulose is an insoluble fiber which does dissolve in water. It is also an emulsifier, meaning it blends oils and water. Citrucel is methyl cellulose (MC). MC may not be appropriate for Crohn?s disease or ulcerative colitis as several medical studies have shown that certain emulsifiers dissolve the mucous lining of the colon in animals prone to Crohn?s disease. This then allows bacteria to invade the underlying tissue. Fiber and Gas Everyone has intestinal gas and that is a good thing.? It means that bacteria, hopefully the good ones, are thriving.? The normal amount of flatus passed each day depends on sex and what is eaten.? The normal number of flatus is 10-20 times a day.? When the bacteria that make intestinal gases are growing, it also means that other good bacteria are using the same fibers to grow and produce multiple health benefits, including the production of healthy short-chain fatty acids.? These substances are produced quietly in the colon and produce many health-related outcomes. Soluble fiber should always be used in a gradual manner.? If too much is consumed at any one time, then excess, but harmless, intestinal gas can occur.? People with irritable bowel syndrome are particularly prone to bloating and mild cramping.? In this instance, soluble fiber in the diet or supplement should be used in small doses and increased gradually. Finally, prebiotic fibers tend to cause the production of short-chain fatty acids which acidify the colon.? This, in turn, reduces or stops the growth of bacteria that make the smelly hydrogen sulfide gases that produce noxious flatus.? People who consume many vegetables with prebiotics or take a prebiotic fiber supplement often have non-odoriferous flatus. Fiber and Irritable Bowel Syndrome Irritable bowel syndrome (IBS) is one of the most common disorders of the lower digestive tract.? The symptoms of IBS can be quite varied.? They can be a mix of several symptoms such as constipation, diarrhea, crampy abdominal discomfort, bloating and gas.? An attack of IBS can be triggered by emotional tension and anxiety, poor dietary habits and certain medications.? It is now known that infections in the intestine can lead to long-term IBS symptoms.? Increased amounts of fiber in the diet can help relieve the symptoms of irritable bowel syndrome by producing soft, bulky stools.? This helps to normalize the time it takes for the stool to pass through the colon.? Recent medical research with newer techniques has shown some surprising and dramatic findings for IBS patients.? Specifically, there is a very significant and abnormal shift of bacteria from those that provide health benefits to those bad bacteria that we really do not want in the gut.? The technical name for this bad group of bacteria is called Firmicutes.? Along with this abnormal bacterial collection, there is a smoldering low-grade inflammation in the gut wall that may contribute to symptoms.? The goal for IBS patients should be to gradually increase the soluble dietary fibers in the diet so as to promote the growth of good bacteria and so suppress the bad ones along with the associated inflammation. IBS patients need to be careful of the amount of soluble fiber they consume.? The reason for this is that, while the good colon bacteria thrive on these fibers and produce health benefits, other gas-forming bacteria may generate excessive but harmless gas and subsequent bloating.? Thus, soluble plant fibers or a dietary prebiotic supplement should be taken in small initial doses and then gradually increased to tolerance. Fiber and Colon Polyps/Cancer Colon cancer is a major health problem. This disease is most common in Western cultures. It is not seen very often in rural cultures where the diet is mostly plant based. Usually, colon cancer starts out as a colon polyp, a benign mushroom-shaped growth. In time it grows, and in some people it becomes cancerous. Colon cancer is usually always curable if polyps are removed when found or if surgery is performed at an early stage. It is now known that people can inherit the risk of developing colon cancer, but diet is important, too. As noted, there is a very low rate of colon cancer in residents of countries where grains are unprocessed and retain their fiber. It seems that in the [place] world, cancer-containing agents (carcinogens) remain in contact with the colon wall for a longer time and in higher concentrations. So, a large bulky stool may act to dilute these carcinogens by moving them through the bowel more quickly. Less carcinogenic exposure to the colon may mean fewer colon polyps and less cancer. A very current review of the entire world?s literature on the effect of fiber on colon polyps and cancer prevention has shown rather clearly that for every 10 grams of fiber added to the diet, there is a 10% reduction in incidence of colon cancer. So the recommended 30 gram fiber diet would result in a 30% less chance of getting these tumors. There are also substances produced in the colon by the good bacteria that seem to retard certain pre-cancer factors from developing. They are called short-chain fatty acids (SCFA). See above for description of SCFAs. A high fiber diet increases these substances. So, the combination of dietary fiber and the production of short-chain fatty acids have a clear health benefit. Fiber and Diverticulosis Prolonged, vigorous contraction of the colon over a long period of time may result in diverticulosis.? This increased pressure causes small and, eventually, larger ballooning pockets to form.? These pockets by themselves cause no problem.? However, sometimes they become infected (diverticulitis) or even break open (perforate) causing infection or inflammation within the abdomen (peritonitis).? A high fiber diet increases the bulk in the stool and thereby reduces the pressure within the colon.? By so doing, the formation of pockets may be reduced or possibly even stopped. In the past, many physicians were fearful that seeds as in tomatoes, nuts or berries were harmful and could get inside these pockets and rattle around, causing damage. We now know that this has never been the case and that these foods contain lots of fiber and are actually beneficial for diverticulosis patients. Certain bulking agents such as psyllium are traditional types of bulk producing supplements.? Psyllium is a soluble fiber.? Combining it with insoluble fiber as in wheat bran or corn bran (no gluten) can enhance this bulking effect even more.? A product containing a prebiotic, psyllium and wheat bran is probably a very good combination for bowel regularity. [email or web address] Regularity/Diverticulosis is one such product. Activity:: see above Diet:: see above Discharge Orders Discharge Orders: Discharge Order (Routine); Ordered 01/31/23 Ordered By: Louisa Velazquez DS: Diagnosis Discharge Diagnosis (1) Tubular adenoma of colon: Status: Acute Asessment and Plan: The patient is seen and examined after their colonoscopy.? The patient has been able to pass gas.? They are not having abdominal pain.? They have been able to tolerate liquids and a snack.? They do not have any nausea or vomiting.? They are not having any chest pain or shortness of breath.??? They are not having any rectal bleeding. Their vital signs have been stable-see nursing notes. We discussed findings during their colonoscopy, and any biopsies that were done/polyps that were removed. The patient will be sent a letter with any biopsy results, and when to repeat the colonoscopy.-see discharge instructions. Patient was given explicit instructions to follow-up regarding colonoscopy-refer to discharge instructions.? We reviewed resumption of medications. Patient verbalized understanding and discharged in stable and satisfactory condition- See nursing notes. Postop diagnosis was discussed with patient. Patient was given information diverticula and a handout as well. (2) Type II diabetes mellitus: Status: Acute (3) Essential hypertension: Status: Acute (4) Hyperlipidemia: Status: Acute (5) Diverticula of colon: Status: Acute (6) Urinary hesitancy due to benign prostatic hyperplasia: Status: Acute (7) Hypertension: (8) High cholesterol:
[2023-01-31 10:13] VITALS: BP 136/78; PULSE 69; RESP 17; TEMP 36.6; O2SAT 95
[2023-01-31] MEDS: Lactated Ringers 1,000 ML 80 ML IV (10:27)
--- NOTE | 2023-01-31 10:51 | W.ANESPRE ---
General Info Date of Service Date Performed: 01/31/23 Height: 5 ft 6 in Weight: 88.7 kg Body Mass Index (BMI): 31.5 Surgical Procedure: Operation Date: 01/31/23 10:35 Proposed Procedure Side Surgeon stefan Velazquez, DO Meds Allergies and Home Medications Allergies Allergy/AdvReac Type Severity Reaction Status Date / Time No Known Allergies Allergy Verified 01/31/23 10:09 Home Medication Medication Instructions Recorded triamcinolone acetonide 0.1 % 1 gm topical BID #15 grams 09/29/17 topical cream glipizide 2.5 mg tablet, extended 2.5 mg PO DAILY #90 tabs 03/19/22 release 24 hr atorvastatin 40 mg tablet See Rx Instructions .Route 04/22/22 .COMPLEX #90 tabs hydrochlorothiazide 25 mg tablet See Rx Instructions .Route 04/22/22 .COMPLEX #90 tabs lisinopril 10 mg tablet See Rx Instructions .Route 04/22/22 .COMPLEX #90 tabs cyclobenzaprine 5 mg tablet 5 mg PO QHS PRN muscle spasm #7 06/21/22 tabs lidocaine 5 % topical patch 1 patch topical DAILY PRN back 06/24/22 (Lidoderm) pain #15 ea acetaminophen 500 mg tablet 500 mg PO BID 11/12/22 (Tylenol Extra Strength) metformin 500 mg tablet See Rx Instructions .Route 11/12/22 .COMPLEX #360 tabs blood sugar diagnostic #100 ea 12/09/22 tamsulosin 0.4 mg capsule 0.8 mg PO DAILY #180 caps 01/07/23 trazodone 50 mg tablet See Rx Instructions PO QHS PRN 01/07/23 sleep #30 tabs citalopram 20 mg tablet See Rx Instructions .Route 01/23/23 .COMPLEX #90 tabs empagliflozin 25 mg tablet 25 mg PO DAILY 01/31/23 (Jardiance) Current Visit Medications: Current Medications Generic Name Dose Route Start Last Admin Trade Name Freq PRN Reason Stop Dose Admin Hyoscyamine Sulfate 0.125 mg 01/31/23 08:51 Hyoscyamine 0.125 Mg Sl/Oral/Chew SL 03/02/23 08:50 DIRECTED PRN Ringer's Solution 1,000 mls @ 80 mls/hr 01/31/23 06:00 01/31/23 10:27 IV 06/23/23 23:59 80 mls/hr INFUSION SHYLA Administration IV Miscellaneous Supplies 1 each 01/31/23 06:00 Iv Access IV 01/31/23 23:59 DIRECTED SHYLA Ondansetron HCl 4 mg 01/31/23 08:51 Ondansetron 4 Mg/2 Ml Vial IVP 03/02/23 08:50 Q4H PRN PRN Nausea / Vomiting Sodium Chloride 0 ml 01/31/23 06:00 Normal Saline Flush 10 Ml Syr IV 01/31/23 23:59 PRN PRN Sodium Chloride 0 ml 01/31/23 06:00 Normal Saline 10 Ml Vial IJ 01/31/23 23:59 DIRECTED PRN Sterile Water 0 ml 01/31/23 06:00 Water,Injection,Sterile 10 Ml Vial IJ 01/31/23 23:59 DIRECTED PRN PFSH Active Problems Active Problems: Problem Status Onset Code Depression F32.9 Depressive disorder 10/22/11 F32.9 Urinary hesitancy due to benign prostatic hyperplasia N40.1, R39.11 Diverticula of colon K57.30 Tubular adenoma of colon 06/26/15 D12.6 Type II diabetes mellitus 12/29/12 E11.9 Erectile dysfunction 10/22/11 N52.9 Essential hypertension 12/29/12 I10 Hyperlipidemia 12/24/12 E78.5 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 RBC microcytosis 12/30/12 R71.8 Obesity 12/31/13 E66.9 Other and unspecified hyperlipidemia 12/24/12 E78.5 Medical History Medical History Colonoscopy refused (04/06/18) Depressive disorder, not elsewhere classified (10/22/11) High cholesterol Hypertension Surgical History Surgical History Arthroscopy L knee History of colonoscopy (~06/2019) Tobacco Smoking/Tobacco Use Status: Former Tobacco Use Alcohol Alcohol Intake: current Alcohol intake frequency: a few times a month Alcohol type: beer Substance Use Substance use: Never Substance use type: does not use Vital Signs and Lab Results Vital Signs Most Recent Vital Signs in EMR: Most Recent Vital Signs Temp Pulse Resp BP Pulse Ox 36.6 C 69 17 136/78 95 01/31/23 10:13 01/31/23 10:13 01/31/23 10:13 01/31/23 10:13 01/31/23 10:13 Point of Care Results Point of Care Results: Finger Stick Blood Glucose 122 01/31/23 10:08 Lab Results Blood Type / Crossmatch: No Data to Display Complete Blood Count: No Data to Display Complete Metabolic Panel: Sodium 142 mmol/L (136-145) 01/07/23 10:07 Potassium 4.5 mmol/L (3.5-5.1) 01/07/23 10:07 Chloride 105 mmol/L (98-107) 01/07/23 10:07 Carbon Dioxide 26.6 mmol/L (21.0-32.0) 01/07/23 10:07 BUN 25 mg/dL (7-18) H 01/07/23 10:07 Creatinine 1.6 mg/dL (0.70-1.30) H 01/07/23 10:07 Est GFR (CKD-EPI 2020) 42.75 (mL/min/1.73m2) 01/07/23 10:07 Calcium 9.0 mg/dL (8.5-10.1) 01/07/23 10:07 Glucose 173 mg/dL (74-106) H 01/07/23 10:07 Hemoglobin A1c 8.8 % (4.5-5.7) H 01/07/23 09:06 Liver Function Panel: No Data to Display Coagulation Panel: No Data to Display Cardiac Panel: No Data to Display Arterial Blood Gas: No Data to Display Venous Blood Gas: No Data to Display Pancreas Panel: No Data to Display Thyroid Panel: No Data to Display Infectious Disease: No Data to Display Blood Cultures: No Data to Display Toxicology Panel: No Data to Display Anesthesia Assessment and Plan Anesthesia History Personal History: No History of Anesthesia Complications Family History: Family History Unknown Exercise Tolerance Exercise Tolerance: Metabolic Equivalents>4 Pertinent Negatives Pertinent Negatives: No Symptoms of GERD Cardiac & Pulmonary Exam Cardiac Exam: Normal S1/S2 Heart Sounds Pulmonary Exam: Clear Bilateral Breath Sounds Implantable Cardiac Device Does patient have a Pacemaker or an ICD?: No Airway Exam Known Difficult Airway: No Mallampati Class: 3 Mouth Opening: Normal (> 3cm) Thyromental Distance: Greater than 3 cm Neck Range of Motion: Full ROM Neck Circumference: Normal Teeth Condition: Normal Dentition ASA Classification ASA Score: ASA 2 Emergency Case?: No NPO Status NPO Status: NPO Clears >2 hours, Solids >8 hours Anesthesia Plan Resuscitation Status: Full Code Anesthesia Technique: General Anesthesia Airway Planned: Natural Airway Monitors Used: Standard Monitors
[2023-01-31 10:52] VITALS: BMI 31.5
--- NOTE | 2023-01-31 11:18 | BOWEL_PTH ---
PATIENT: Warren Eckert LOC: [facility] U#:[id number] AGE/SX: 82/M ROOM: RE01/31/[address]: Louisa Velazquez : 1940 BED: DIS: 01/31/2023 SPEC #: [id number] RECD: 01/31/23 12:27 STATUS: MAKSIM REWillian #: [id number] ALEXA: 01/31/23 11:[address]: Louisa Velazquez DEPT: Surgical Specimen RECD BY: Yaneli Gonzalez ENTERED: 01/31/23 12:28 SP TYPE: Bowel OTHR DR: Ngozi Silva APRN Tissues: 1 - BIOPSY BOWEL Procedures: GROSS AND MICRO LEVEL 4 Comments: [id number]
[2023-01-31 11:21] VITALS: BP 115/61; PULSE 62; RESP 18; TEMP 36.2; O2SAT 96
--- NOTE | 2023-01-31 11:25 | W.ANESPOSTOP ---
Postoperative Evaluation Date, Time and Location Date Performed: 01/31/23 Time Performed: 11:25 Patient Location: Day Surgery Unit Vital Signs Most Recent Imported Vital Signs: Most Recent Vital Signs Temp Pulse Resp BP Pulse Ox 36.6 C 69 17 136/78 95 01/31/23 10:13 01/31/23 10:13 01/31/23 10:13 01/31/23 10:13 01/31/23 10:13 Pain Score Most Recent Pain Score: Most Recent Pain Score Pain Level 0 01/31/23 10:13 Assessment Mental Status: Arousable with meaningful communication Airway and Respiratory Function: Patent airway with normal (patient baseline) respiratory exam Cardiovascular Function: Hemodynamically Stable Hydration Status: Adequately Hydrated Nausea & Vomiting: No Nausea or Vomiting Pain: Pt. Denies Any Pain Peripheral Nerve Block: Patient did not receive a nerve block
[2023-01-31 11:29] VITALS: PULSE 67; RESP 18; O2SAT 95
[2023-01-31 12:02] VITALS: BP 140/69; PULSE 70; RESP 16; TEMP 36.1; O2SAT 97
== END 2023-01-31 12:37 | disposition home or self-care (01) ==
PROVIDERS: PCP Nurse Practitioner; Visit Provider Surgery
PROC: 0DJD8ZZ Inspection of Lower Intestinal Tract, Via Natural or Artificial Opening Endoscopic (ICD-10-PCS; CPT 45378; principal; 2023-01-31 10:30)
DX: Z12.11 Encounter for screening for malignant neoplasm of colon (principal); K62.1 Rectal polyp; K57.30 Diverticulosis of large intestine without perforation or abscess without bleeding; Z86.010 Personal history of colon polyps; I10 Essential (primary) hypertension; E78.00 Pure hypercholesterolemia, unspecified; E11.9 Type 2 diabetes mellitus without complications; Z79.84 Long term (current) use of oral hypoglycemic drugs; K55.20 Angiodysplasia of colon without hemorrhage
CPT/HCPCS: 45380; 88305; J2001

== ENCOUNTER 2024-02-11 10:24 | Outpatient (CLI) | payer MEDICARE, SELFPAY ==
[2024-02-11 10:41] LABS: Abs Immature Grans 0.03 10^3/uL (0.0-0.06); Absolute Basophil Count 0.05 10^3/uL (0.0-0.2); Absolute Eosinophil Count 0.27 10^3/uL (0.0-0.7); Absolute Lymphocyte Count 2.36 10^3/uL (1.2-3.4); Absolute Monocyte Count 0.56 10^3/uL (0.1-0.8); Absolute Neutrophil Count 3.77 10^3/uL (1.2-6.7); Basophils % 0.7 %; Eosinophils % 3.8 %; HCT 41.3 % (40.0-50.0); Immature Grans % 0.4 %; Lymphocytes % 33.5 %; MCH 32.4 pg (27.0-33.0); MCHC 33.9 % (32.0-36.0); MCV 96 fL (80-95); MPV 10.3 fL (8.0-11.0); Neutrophils % 53.6 %; Platelet Count 195 10^3/uL (130-400); RBC 4.32 10^6/uL (4.36-5.78); RDW 12.4 % (11.8-14.1); RDW-SD 43.7 fL; WBC 7.04 10^3/uL (4.4-10.8)
[2024-02-11 11:27] LABS: ALT 30 U/L (16-63); AST 19 U/L (15-37); Albumin 3.4 g/dL (3.4-5.0); Alkaline Phosphatase 100 U/L (46-116); Anion Gap 8.9 mmol/L (3-11); BUN 25 mg/dL (7-18); Bilirubin, Total 0.73 mg/dL (0.2-1.0); CO2 28.1 mmol/L (21.0-32.0); CREATININE 1.5 mg/dL (0.70-1.30); Calcium 8.8 mg/dL (8.5-10.1); Calculated LDL 122 mg/dL (<100); Chloride 104 mmol/L (98-107); Cholesterol 197 mg/dL (<200); Estimated GFR 45.91 (mL/min/1.73m2); Glucose 366 mg/dL (74-106); HDL Cholesterol 41 mg/dL (40-60); Potassium 4.6 mmol/L (3.5-5.1); Sodium 141 mmol/L (136-145); TSH (W/Ref FT4) 6.77 uIU/mL (0.36-3.74); Total Protein 6.9 g/dL (6.4-8.2); Triglyceride 170 mg/dL (<150)
[2024-02-11 12:15] LABS: FREE T4 0.98 ng/dL (0.76-1.46)
[2024-02-12 10:54] LABS: HIV-1/2 Ag & Ab Screen Negative (Negative)
[2024-02-16 12:05] LABS: TB Interpretation Negative (Negative)
== END 2024-02-11 10:25 | disposition home or self-care (01) ==
LOC: LBO 10:24
PROVIDERS: PCP Nurse Practitioner; Visit Provider Nurse Practitioner
DX: I10 Essential (primary) hypertension (principal); E78.5 Hyperlipidemia, unspecified; E11.9 Type 2 diabetes mellitus without complications; R61 Generalized hyperhidrosis
CPT/HCPCS: 36415; 80053; 80061; 87389; 84439; 84443; 85025; 86480

== ENCOUNTER 2024-07-15 14:32 | Observation (INO) | payer MEDICARE, SELFPAY ==
[2024-07-15] VITALS (19 sets, daily range): BP systolic 120–150; BP diastolic 51–87; PULSE 51–106; RESP 18–23; TEMP 36.3–37.3; O2SAT 93–98
--- NOTE | 2024-07-15 14:45 | RT.EKG_ITS ---
APPROVED REPORT Exam: Resting ECG Reason for Exam: weakness Patient Location: E HR:62 bpm ECG Measurements Heart Rate 62 AXIS WV 179 P -1 QRSd 86 QRS 54 QT 393 T 37 QTc 399 Conclusion Sinus rhythm...normal P axis, V-rate 60- [address] segment or T wave abnormalitites to suggest occlusive IA
[2024-07-15 15:08] LABS: Bilirubin Negative (Negative); Blood Trace-lysed (Negative); Clarity Clear (Clear); Glucose >=1000 mg/dL (Negative); Ketones Trace mg/dL (Negative); Leukocyte Esterase Negative (Negative); Nitrite Negative (Negative); Specific Gravity <= 1.005 (1.005-1.025); Urobilinogen 0.2 mg/dL (Up to 0.2)
[2024-07-15 15:11] LABS: Lactate 1.3 mmol/L (0.6-1.4)
[2024-07-15 15:12] LABS: Abs Immature Grans 0.02 10^3/uL (0.0-0.06); Absolute Basophil Count 0.02 10^3/uL (0.0-0.2); Absolute Eosinophil Count 0.26 10^3/uL (0.0-0.7); Absolute Lymphocyte Count 0.92 10^3/uL (1.2-3.4); Absolute Monocyte Count 0.51 10^3/uL (0.1-0.8); Absolute Neutrophil Count 4.55 10^3/uL (1.2-6.7); Basophils % 0.3 %; Eosinophils % 4.1 %; HCT 35.9 % (40.0-50.0); HGB 12.4 g/dL (13.5-17.5); Immature Grans % 0.3 %; Lymphocytes % 14.6 %; MCHC 34.5 % (32.0-36.0); MCV 93 fL (80-95); MPV 10.8 fL (8.0-11.0); Monocytes % 8.1 %; Neutrophils % 72.6 %; Platelet Count 190 10^3/uL (130-400); RBC 3.87 10^6/uL (4.36-5.78); RDW 11.9 % (11.8-14.1); RDW-SD 41.1 fL; WBC 6.28 10^3/uL (4.4-10.8)
--- NOTE | 2024-07-15 15:15 | DI.CT_ITS ---
Exam(s) CT ABDOMEN PELVIS W EXAM: CT ABDOMEN PELVIS W CLINICAL HISTORY: diffuse abdominal tenderness TECHNIQUE: Imaging Protocol: Axial computed tomography images with coronal and sagittal reformatted images were created and reviewed. CONTRAST MATERIAL: Intravenous: Omnipaque 350 Contrast volume:85 mL Oral: No COMPARISON: No exams were available for comparison FINDINGS: ABDOMEN: Lung Bases: No acute abnormality. Liver: Normal density. No measurable mass. Portal, Superior Mesenteric, and Splenic Veins: Unremarkable. Gallbladder and Biliary Tract: No radiodense calculus or dilation. Pancreas: Normal density, no abnormal calcifications or inflammatory process. Spleen: There is a thin 3 mm subcapsular collection at the superior aspect of the spleen. Adrenals: No masses seen. Kidneys: Normal size, contour and axis. No nephrolithiasis. Nonspecific mild dilatation of the urete rs is noted. No obstructing lesion/calcification is seen. There is a small simple cyst in the right kidney. No follow-up is recommended. There is a circum aortic left renal vein. Abdominal Aorta: Abdominal portion non-dilated. Atherosclerotic calcification is present. Bowel: There is diverticulosis of the colon without evidence of acute diverticulitis. No evidence of bowel obstruction. There is wall thickening at the ileocecal junction. (Series 10, images 105-118. ). Appendix is unremarkable. Peritoneal Cavity: No ascites, collection or mesenteric inflammatory response. No free air. Lymph Nodes: Within normal limits. Bones: Within normal limits for the patient's age. Soft Tissues: Unremarkable. PELVIS: Bladder: The bladder is distended. Diverticula are seen at the superior and posterior aspect of the urinary bladder. No intraluminal mass is appreciated. Reproductive Organs: The prostate gland is enlarged. Lymph Nodes: Within normal limits. Bones: Within normal limits for the patient's age. IMPRESSION: 1. Wall thickening seen in the distal ileum. Differential considerations include infectious or infla mmatory process versus a neoplastic process. Follow-up should be considered with a small-bowel follo w-through and or barium enema/colonoscopy. 2. Enlarged prostate gland. 3. Distended urinary bladder with mild dilatation of both ureters which may be the result of chronic bladder outlet obstruction. Urinary bladder diverticula are seen. 4. 3 mm subcapsular collection of the superior aspect of the spleen. This is non-specific. This may represent an old subcapsular hematoma. No evidence of active hemorrhage. Abscess is considered les s likely. RADIATION DOSE DELIVERED: 785.99mGy.cm Total DLP DATA REPOSITORY: All CT scans at this facility are submitted to the National Radiology Data Registry (NRDR) Dose Index Registry (DIR) with the [employer] ([employer]). RADIATION OPTIMIZATION: All CT scans at this facility use at least one of these dose optimization te chniques: automated exposure control; mA and/or kV adjustment per patient size (includes targeted exa ms where dose is matched to clinical indication); or iterative reconstruction.
--- NOTE | 2024-07-15 15:15 | DI.CT_ITS ---
Exam(s) CT HEAD WO EXAM: CT HEAD WO CLINICAL HISTORY: falls, generalized weakness. TECHNIQUE: Imaging Protocol: Axial computed tomography images with coronal and sagittal reformatted images were created and reviewed COMPARISON: No exams were available for comparison FINDINGS: Ventricles and Extra axial spaces: Normal in size and morphology for the patient's age. Hemorrhage: None. Cerebral parenchyma: No evidence of an acute territorial infarct. No mass effect is identified. Midline shift: None. Brainstem/Cerebellum: Normal. Calvarium: Normal. Visualized Paranasal sinuses/Mastoids: Clear. Soft Tissues: Unremarkable. IMPRESSION: No acute intracranial process. RADIATION DOSE DELIVERED: 870.98mGy.cm Total DLP DATA REPOSITORY: All CT scans at this facility are submitted to the National Radiology Data Registry (NRDR) Dose Index Registry (DIR) with the [employer] (ACR). RADIATION OPTIMIZATION: All CT scans at this facility use at least one of these dose optimization te chniques: automated exposure control; mA and/or kV adjustment per patient size (includes targeted exa ms where dose is matched to clinical indication); or iterative reconstruction.
[2024-07-15 15:17] LABS: Bacteria Rare HPF (Negative); Casts Negative LPF (Negative); Crystals Negative HPF (Negative); Epithelial Cells Rare HPF (Negative); Mucus Negative (Negative); RBC 0-2 HPF (0-2)
[2024-07-15 15:18] LABS: C & S Indicated? No
--- NOTE | 2024-07-15 15:26 | ED.GENADUL_ITS ---
Discharge Plan Disposition Patient Disposition: Admit to [facility] Condition: Serious Discharge Details Chief Complaint: GenMedical Clinical Impression: Focal motor seizure, Generalized weakness, Hyperglycemia Primary Care Provider: Ngozi Silva ED Provider: Sia Craig Home Meds and New Rx's Prescriptions: No Action acetaminophen [Tylenol Extra Strength] 500 mg tablet 500 mg PO BID Patient Comments: Pt states he takes 500mg BID and no back spasms as a result.HE Jardiance 25 mg tablet 25 mg PO DAILY Qty: 90 3RF doxepin 25 mg capsule 25 mg PO QHS Qty: 30 3RF (DME) blood sugar diagnostic Strip See Dose Instructions .ROUTE .MEDSUPPLY Qty: 100 6RF Dose Instruction: As directed Rx Instructions: Test TID and PRN. atorvastatin 40 mg tablet See Rx Instructions .ROUTE .COMPLEX Qty: 90 3RF Dose Instruction: TAKE ONE TABLET BY MOUTH EVERY DAY Rx Instructions: TAKE ONE TABLET BY MOUTH EVERY DAY metformin 500 mg tablet See Rx Instructions .ROUTE .COMPLEX Qty: 360 3RF Dose Instruction: TAKE TWO TABLETS BY MOUTH TWICE A DAY Rx Instructions: TAKE TWO TABLETS BY MOUTH TWICE A DAY hydrochlorothiazide 25 mg tablet See Rx Instructions .ROUTE .COMPLEX Qty: 90 1RF Dose Instruction: TAKE ONE TABLET BY MOUTH EVERY DAY Rx Instructions: TAKE ONE TABLET BY MOUTH EVERY DAY lisinopril 10 mg tablet See Rx Instructions .ROUTE .COMPLEX Qty: 90 1RF Dose Instruction: TAKE ONE TABLET BY MOUTH EVERY DAY Rx Instructions: TAKE ONE TABLET BY MOUTH EVERY DAY citalopram 20 mg tablet See Rx Instructions .ROUTE .COMPLEX Qty: 90 1RF Dose Instruction: TAKE ONE TABLET BY MOUTH EVERY DAY Rx Instructions: TAKE ONE TABLET BY MOUTH EVERY DAY tamsulosin 0.4 mg capsule See Rx Instructions .ROUTE .COMPLEX Qty: 180 1RF Dose Instruction: TAKE TWO CAPSULES BY MOUTH EVERY DAY Rx Instructions: TAKE TWO CAPSULES BY MOUTH EVERY DAY glipizide 2.5 mg tablet extended release 24hr See Rx Instructions .ROUTE .COMPLEX Qty: 90 1RF Dose Instruction: TAKE ONE TABLET BY MOUTH EVERY DAY Rx Instructions: TAKE ONE TABLET BY MOUTH EVERY DAY cyclobenzaprine 5 mg tablet 5 mg PO QHS PRN (Reason: muscle spasm) Qty: 7 0RF sennosides [Natural Senna Laxative] 8.6 mg tablet 50 - 100 mg PO ONCE PRN bisacodyl [Alophen (bisacodyl)] 5 mg tablet,delayed release (DR/EC) 5 mg PO ONCE PRN perfect amino 5,000 mg PO DIRECTED pro dentin 20 mg PO DIRECTED calcium polycarbophil [Fiber (calcium polycarbophil)] 625 mg tablet 625 mg PO ONCE PRN HPI General Mode of arrival: ambulatory . Date/Time Provider Initiated Documentation: 07/15/24 14:53 . Limitations to Documentation: no limitations . Information obtained by: patient . HPI Narrative: 83yo M with hx HTN, HLD, T2DM, presenting for generalized weakness and occasional falls x 2 weeks. Denies any pain or physical complaints currently. Has not been taking his metformin at home (unclear why). No focal weakness. at bedside reports intermittent episodes of LUE tremors lasting ~1 minute at time, pt concurs this has been happening over the past 2- 3 weeks. He remains alert during these events. No numbness or tingling. Has felt warm, but has not checked his temp at home. Does not think he has hit his head when he fell. Otherwise in his usual state of health with no chills, rash, nausea, vomiting, abdominal pain, dysuria, hematuria, chest pain, lower extremity edema, or other concerns. Related Data Home Medications ?Medication ?Instructions ?Recorded ?Confirmed cyclobenzaprine 5 mg tablet 5 mg PO QHS PRN muscle spasm #7 06/21/22 07/15/24 tabs acetaminophen 500 mg tablet 500 mg PO BID 11/12/22 07/15/24 (Tylenol Extra Strength) blood sugar diagnostic #100 ea 12/09/22 01/20/24 atorvastatin 40 mg tablet See Rx Instructions .Route 06/24/23 07/15/24 .COMPLEX #90 tabs metformin 500 mg tablet See Rx Instructions .Route 09/15/23 07/15/24 .COMPLEX #360 tabs doxepin 25 mg capsule 25 mg PO QHS #30 caps 01/20/24 07/15/24 empagliflozin 25 mg tablet 25 mg PO DAILY #90 tabs 01/20/24 07/15/24 (Jardiance) citalopram 20 mg tablet See Rx Instructions .Route 05/26/24 07/15/24 .COMPLEX #90 tabs glipizide 2.5 mg tablet, extended See Rx Instructions .Route 05/26/24 07/15/24 release 24 hr .COMPLEX #90 tabs hydrochlorothiazide 25 mg tablet See Rx Instructions .Route 05/26/24 07/15/24 .COMPLEX #90 tabs lisinopril 10 mg tablet See Rx Instructions .Route 05/26/24 07/15/24 .COMPLEX #90 tabs tamsulosin 0.4 mg capsule See Rx Instructions .Route 05/26/24 07/15/24 .COMPLEX #180 caps bisacodyl 5 mg tablet,delayed 5 mg PO ONCE PRN 07/15/24 07/15/24 release (Alophen (bisacodyl)) calcium polycarbophil 625 mg 625 mg PO ONCE PRN 07/15/24 07/15/24 tablet (Fiber (calcium polycarbophil)) perfect amino 5,000 mg PO DIRECTED 07/15/24 07/15/24 pro dentin 20 mg PO DIRECTED 07/15/24 07/15/24 sennosides 8.6 mg tablet (Natural 50 - 100 mg PO ONCE PRN 07/15/24 07/15/24 Senna Laxative) Previous Rx's ?Medication ?Instructions ?Recorded cyclobenzaprine 5 mg tablet 5 mg PO QHS PRN muscle spasm #7 06/21/22 tabs blood sugar diagnostic #100 ea 12/09/22 atorvastatin 40 mg tablet See Rx Instructions .Route 06/24/23 .COMPLEX #90 tabs metformin 500 mg tablet See Rx Instructions .Route 09/15/23 .COMPLEX #360 tabs doxepin 25 mg capsule 25 mg PO QHS #30 caps 01/20/24 empagliflozin 25 mg tablet 25 mg PO DAILY #90 tabs 01/20/24 (Jardiance) citalopram 20 mg tablet See Rx Instructions .Route 05/26/24 .COMPLEX #90 tabs glipizide 2.5 mg tablet, extended See Rx Instructions .Route 05/26/24 release 24 hr .COMPLEX #90 tabs hydrochlorothiazide 25 mg tablet See Rx Instructions .Route 05/26/24 .COMPLEX #90 tabs lisinopril 10 mg tablet See Rx Instructions .Route 05/26/24 .COMPLEX #90 tabs tamsulosin 0.4 mg capsule See Rx Instructions .Route 05/26/24 .COMPLEX #180 caps Allergies Allergy/AdvReac Type Severity Reaction Status Date / Time No Known Allergies Allergy Verified 01/20/24 11:59 General Stated Complaint: GenMedical ALISSA: 3 Review of Systems Narrative: see HPI Exam Narrative Exam Narrative: General: Alert, well appearing, well nourished, in no acute distress. Head: Normocephalic, atraumatic Neck: Trachea midline, ?Neck supple. ENT: ?MMM.? No oropharygeal lesions or exudate. Cardiac: ?RRR, no murmurs appreciated Resp: No respiratory distress. CTAB. Abd: ?Soft, non-distended, mild diffuse tenderness to palpation with no rebound or guarding. : ?No suprapubic tenderness. No CVA tenderness. Extremities: ?No deformities.? No peripheral edema. Abrasion to left knee. Neuro: ? GCS 15.? PERRL.? EOMI.? Fluent speech, no dysarthria. Motor- 5/5 strength symmetric bilateral upper and lower extremities Sensation- ?Intact to light touch and symmetric multiple dermatomes including upper and lower extremities Coordination- No dysmetria on finger to nose Gait/station: ?With walker: Normal stance.? No truncal ataxia. Steady gait with equal normal steps CRANIAL NERVES: II: Pupils equal and reactive, III, IV, : EOM intact, no gaze preference or deviation, no nystagmus. V: normal sensation in V1, V2, and V3 segments bilaterally VII: no asymmetry, no nasolabial fold flattening VIII: normal hearing to speech IX, X: normal palatal elevation, no uvular deviation XI: 5/5 head turn and 5/5 shoulder shrug bilaterally XII: midline tongue protrusion Course Vital Signs Vital signs: Vital Signs Temperature 37.3 C 07/15/24 14:30 Pulse 69 07/15/24 14:30 Respiratory Rate 18 07/15/24 14:30 Blood Pressure 150/87 H 07/15/24 14:30 Pulse Oximetry 95 07/15/24 14:30 Temperature 37.3 C 07/15/24 14:51 Temperature Source Temporal Artery Scan 07/15/24 14:51 Pulse 66 07/15/24 14:51 Respiratory Rate 18 07/15/24 15:07 Respiratory Effort Normal 07/15/24 15:07 Respiratory Depth Normal 07/15/24 15:07 Respiratory Pattern Normal 07/15/24 15:07 Blood Pressure 141/77 H 07/15/24 14:51 Pulse Oximetry 95 07/15/24 14:51 Oxygen Delivery Method Room Air 07/15/24 14:51 Oxygen Flow Rate 0 07/15/24 14:51 Pain Level 0 07/15/24 14:51 Comment stated fever per 07/15/24 14:51 Lab/Test Results Lab/Test Results: Laboratory Tests Range/Units 07/15/24 07/15/24 14:35 15:03 WBC (4.4-10.8) 10^3/uL 6.28 RBC (4.36-5.78) 10^6/uL 3.87 L Hgb (13.5-17.5) g/dL 12.4 L Hct (40.0-50.0) % 35.9 L MCV (80-95) fL 93 MCH (27.0-33.0) pg 32.0 MCHC (32.0-36.0) % 34.5 RDW (11.8-14.1) % 11.9 Plt Count (130-400) 10^3/uL 190 MPV (8.0-11.0) fL 10.8 Immature Gran % % 0.3 Neutrophils % % 72.6 Lymphocytes % % 14.6 Monocytes % % 8.1 Eosinophils % % 4.1 Basophils % % 0.3 Nucleated RBC % (0.0-0.3) % 0.0 Absolute Neutrophils (1.2-6.7) 10^3/uL 4.55 Absolute Lymphocytes (1.2-3.4) 10^3/uL 0.92 L Absolute Monocytes (0.1-0.8) 10^3/uL 0.51 Absolute Eosinophils (0.0-0.7) 10^3/uL 0.26 Absolute Basophils (0.0-0.2) 10^3/uL 0.02 VBG Lactate (0.6-1.4) mmol/L 1.3 Urine Color (Yellow) Yellow Urine Clarity (Clear) Clear Urine pH (5-8) 5.0 Ur Specific [place] (1.005-1.025) <= 1.005 Urine Protein (Neg-Trace) mg/dL Negative Urine Ketones (Negative) mg/dL Trace H Urine Blood (Negative) Trace-lysed H Urine Nitrite (Negative) Negative Urine Bilirubin (Negative) Negative Urine Urobilinogen (Up to 0.2) mg/dL 0.2 Ur Leukocyte Esterase (Negative) Negative Urine RBC (0-2) HPF 0-2 Urine WBC (0-5) HPF 5-10 Ur Epithelial Cells (Negative) HPF Rare Urine Crystals (Negative) HPF Negative Urine Bacteria (Negative) HPF Rare Urine Casts (Negative) LPF Negative Urine Mucus (Negative) Negative Ur Culture Indicated? No Urine Glucose (Negative) mg/dL >=1000 H Medical Decision Making 83yo M with hx T2DM, HTN, HLD, depression, presenting for generalized weakness for about two weeks. at bedside has also noted LUE tremors occasionally over this same period of time. Has not been taking his metformin (does not take insulin at home). Slightly hypertensive on arrival, vital signs otherwise reassuring. Mild diffuse abdominal tenderness with no rebound or guarding, otherwise unremarkable physical exam. EKG SR, appropriate intervals, no ST segment or T wave abnormalities no suggest occlusive DE. -Labs reviewed as below, CBC with mild anemia at 12.4, CMP with no actionable electrolyte abnormalities and Cr at baseline on [facility] record review, blood glucose 522, lactate and procal normal, Mg normal, troponin and BNP normal (would not futher puruse ACS or HF), UA not infected with trace ketones. Not DKA, suspect hyperglycemia 2/t medication non-adherence; will give SQ insulin here to gain initial control. Fingerstick 433 after 6 units; given additional 6 units and subsequent fingerstick 321. -CT head independently reviewed; no mass or bleed on my view, agree with radiology read below -CT abd/pelvis independently reviewed; no obstruction or free fluid on my view, radiology read below with findings including BPH, bladder dilation, wall thickening in distal ileum, splenic collection (all appropriate for outpatient followup). -PT evaluated patient, able to ambulate steadily independently with walker On reassessment he remains well appearing with reassuring vital signs, repeat abdominal exam non-tender. Rhythmic movements of LUE noted by both nursing and PT (I did not observe these personally), description consistent with focal seizure. [place] [facility] [place] [place] Grider; discussed together and agree concerning for focal seizure; also noted to have ataxia with LUE. Advised observation overnight with MRI (with and without) and EEG tomorrow, no interventions indicated. Discussed with Dr. Anderson and pt accepted to medicine service. Awaiting orders and transfer to the floor. Imaging Data Radiologic Study: Imaging: CT Scan Radiologist's impression: HEAD: IMPRESSION: No acute intracranial process. ABD/PELVIS: IMPRESSION: 1. Wall thickening seen in the distal ileum. Differential considerations include infectious or inflammatory process versus a neoplastic process. Follow- up should be considered with a small-bowel follow-through and or barium enema/colonoscopy. 2. Enlarged prostate gland. 3. Distended urinary bladder with mild dilatation of both ureters which may be the result of chronic bladder outlet obstruction. Urinary bladder diverticula are seen. 4. 3 mm subcapsular collection of the superior aspect of the spleen. This is non-specific. This may represent an old subcapsular hematoma. No evidence of active hemorrhage. Abscess is considered less likely. Lab Data Lab results reviewed: Yes I reviewed the patient's lab results. Labs: Laboratory Tests Range/Units 07/15/24 07/15/24 14:35 15:03 WBC (4.4-10.8) 10^3/uL 6.28 RBC (4.36-5.78) 10^6/uL 3.87 L Hgb (13.5-17.5) g/dL 12.4 L Hct (40.0-50.0) % 35.9 L MCV (80-95) fL 93 MCH (27.0-33.0) pg 32.0 MCHC (32.0-36.0) % 34.5 RDW (11.8-14.1) % 11.9 Plt Count (130-400) 10^3/uL 190 MPV (8.0-11.0) fL 10.8 Immature Gran % % 0.3 Neutrophils % % 72.6 Lymphocytes % % 14.6 Monocytes % % 8.1 Eosinophils % % 4.1 Basophils % % 0.3 Nucleated RBC % (0.0-0.3) % 0.0 Absolute Neutrophils (1.2-6.7) 10^3/uL 4.55 Absolute Lymphocytes (1.2-3.4) 10^3/uL 0.92 L Absolute Monocytes (0.1-0.8) 10^3/uL 0.51 Absolute Eosinophils (0.0-0.7) 10^3/uL 0.26 Absolute Basophils (0.0-0.2) 10^3/uL 0.02 VBG Lactate (0.6-1.4) mmol/L 1.3 Sodium (136-145) mmol/L 135 L Potassium (3.5-5.1) mmol/L 4.2 Chloride (98-107) mmol/L 101 Carbon Dioxide (21.0-32.0) mmol/L 24.2 Anion Gap (3-11) mmol/L 9.8 BUN (7-18) mg/dL 29 H Creatinine (0.70-1.30) mg/dL 1.5 H Est GFR (CKD-EPI 2020) (mL/min/1.73m2) 45.91 Glucose (74-106) mg/dL 522 H* Calcium (8.5-10.1) mg/dL 8.5 Magnesium (1.8-2.4) mg/dL 1.8 Total Bilirubin (0.2-1.0) mg/dL 1.14 H AST (15-37) U/L 13 L ALT (16-63) U/L 20 Alkaline Phosphatase (46-116) U/L 114 Troponin I (<or=76) ng/L 7 NT-Pro-B Natriuret Pep (<300) pg/mL 156 Total Protein (6.4-8.2) g/dL 6.2 L Albumin (3.4-5.0) g/dL 2.8 L Procalcitonin ng/mL < 0.10 Urine Color (Yellow) Yellow Urine Clarity (Clear) Clear Urine pH (5-8) 5.0 Ur Specific [place] (1.005-1.025) <= 1.005 Urine Protein (Neg-Trace) mg/dL Negative Urine Ketones (Negative) mg/dL Trace H Urine Blood (Negative) Trace-lysed H Urine Nitrite (Negative) Negative Urine Bilirubin (Negative) Negative Urine Urobilinogen (Up to 0.2) mg/dL 0.2 Ur Leukocyte Esterase (Negative) Negative Urine RBC (0-2) HPF 0-2 Urine WBC (0-5) HPF 5-10 Ur Epithelial Cells (Negative) HPF Rare Urine Crystals (Negative) HPF Negative Urine Bacteria (Negative) HPF Rare Urine Casts (Negative) LPF Negative Urine Mucus (Negative) Negative Ur Culture Indicated? No Urine Glucose (Negative) mg/dL >=1000 H Quality:SDOH Health Related Social Needs: No Data to Display PFSH All Active Problems (Updated 07/15/24 @ 19:08 by Sia Craig MD) Hyperglycemia (Acute) Generalized weakness (Acute) Focal motor seizure (Acute) Depression (Chronic) Depressive disorder (Chronic 10/22/11) Urinary hesitancy due to benign prostatic hyperplasia (Acute) Diverticula of colon (Acute) Tubular adenoma of colon (Acute 06/26/15) Type II diabetes mellitus (Acute 12/29/12) A1C goal 7.5 Erectile dysfunction (Acute 10/22/11) Essential hypertension (Acute 12/29/12) FRS 30% Hyperlipidemia (Acute 12/24/12) PCEq risk 40%;baseline LDL 140 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) RBC microcytosis (Acute 12/30/12) NL B12 04/2005 Obesity (Acute 12/31/13) Other and unspecified hyperlipidemia (Acute 12/24/12) PCEq risk 40%;baseline LDL 140 Medical History (Updated 07/15/24 @ 19:08 by Sia Craig MD) High cholesterol Hypertension Depressive disorder, not elsewhere classified (10/22/11) Colonoscopy refused (04/06/18) Surgical History (Updated 02/03/23 @ 11:04 by Luann Fall) History of colonoscopy (~01/2023) 01/2023, 06/2019 Arthroscopy L knee Social History (Updated 01/20/24 @ 12:00 by Lynn Conroy LPN) Smoking/Tobacco Use Status: Former Tobacco Use Smoking risk assessment performed?: Yes Alcohol Intake: current Alcohol Intake frequency: a few times a month Alcohol type: beer Drug use: Never Substance use type: does not use Household members: spouse Housing: house Communication Needs: Corrective Lenses What is your relationship status?: Panel score (0-1 are the most socially isolated patients): 1 What type of physical activity do you participate in: other Details: snow shoveling in winter and gardening in summer Frequency: daily Do you feel safe at home: Yes Do you feel safe in your relationship?: Yes PAWSS Have you Been Recently Intoxicated or Drunk Within the Last 30 days?: No Have you Ever Experienced Previous Episodes of Alcohol Withdrawal?: No Have you ever Experienced Withdrawal Seizures?: No Have you ever Experienced Delirium Tremens(DT)s?: No Have you ever undergone Alcohol Rehabilitation Treatment (i.e, inpt ot outpatient treatment programs)?: No Have you ever Experienced Blackouts?: No Have you ever Combined Alcohol with other Downers within the last 90 days?: No Have you ever Combined Alcohol with any other Substance of Abuse during the last 90 days?: No Positive Blood Alcohol level on Presentation? [PCS.BAL]: No Evidence of Increased Autonomic Activity (i.e. HR>120, tremor, sweating, agitation, nausea)?: No Result: 0
[2024-07-15 15:35] LABS: ALT 20 U/L (16-63); AST 13 U/L (15-37); Albumin 2.8 g/dL (3.4-5.0); Alkaline Phosphatase 114 U/L (46-116); Anion Gap 9.8 mmol/L (3-11); BUN 29 mg/dL (7-18); Bilirubin, Total 1.14 mg/dL (0.2-1.0); CO2 24.2 mmol/L (21.0-32.0); CREATININE 1.5 mg/dL (0.70-1.30); Calcium 8.5 mg/dL (8.5-10.1); Chloride 101 mmol/L (98-107); Estimated GFR 45.91 (mL/min/1.73m2); Magnesium 1.8 mg/dL (1.8-2.4); NT-proBNP 156 pg/mL (<300); Potassium 4.2 mmol/L (3.5-5.1); Sodium 135 mmol/L (136-145); Total Protein 6.2 g/dL (6.4-8.2); Troponin I 7 ng/L (<or=76)
[2024-07-15 15:40] LABS: Glucose 522 mg/dL (74-106)
[2024-07-15 15:44] LABS: Procalcitonin < 0.10 ng/mL
--- NOTE | 2024-07-15 16:12 | PT.INIE ---
PT Notes Visit Reasons: CORRINE/ ambulatory Physical Therapy Initial Evaluation Date: 07/15/2024 Referring Doctor: Dr Sia Craig PT Orders: PT CONSULT: Safety consult for discharge Precautions: Telemetry Patient Profile/Admitting Diagnosis: Patient is 83-year-old male presented to the ED via EMS status post multiple falls over the past few days. At time of this evaluation patient awaiting CT scan. requests PT eval is appropriate prior to CT scan. ED workup also including blood work and urinalysis. PMHX: HTN, DM 2, HLD, depression, obesity Social History/Home Situation: Pt resides in a single family home. He reports he enters the home through a walkin basement then has to climb 13 steps with 2 rails to the main level of the home. Equipment Owned/DME: 2 FWW Subjective: Pt reports he felt fine until 2 days ago when he started falling. He states he has had 10-11 falls . He reports he doesnot loose his balance he just can't hold himself up. His partner reports he has been having shaking/jerking movements of his left arm for 2-3 days. ( episode witnessed x 2 by this PT) Objective: General Observation: pt received semireclined on stretcher with telemetry in place IV infusing in LUE, partner present in room. He has an abrasion to his left knee and an eccymotic area to dorsum of left hand. Mental Status: Alert and oriented x4, cooperative agreeable to participate in evaluation. Pain: denies ROM: Right Upper Extremity: WFL Left Upper Extremity: WFL Right Lower Extremity: WNL except DF to neutral Left Lower Extremity: WNL except DF to neutral Strength: [] Right Upper Extremity: 5/5 Left Upper Extremity: pt able to move through full AROM all joints, 2 episodes of rhythmic jerking of LUE lasting 60-90 sec followed by weakness less than 2/5 with flaccid wrist extension and finger extension which resolved within 3 mins Right Lower Extremity: hip 4/5, knee 4/5, ankle 3/5 Left Lower Extremity: hip 3+/5, knee 3+/5, ankle 3/5 Sensation: intact BUE BLE to light tough and deep pressure Bed Mobility/Transfers: Supine to sit SBA Sit to stand SBA Stand to sit SBA Bed to chair SBA Gait: Pt ambulates with FWW with SBA 160 feet level surfaces and surface changes including multiple turns . Pt ambulated 20 feet x 2 without AD with CGA Balance: Static Sitting: Good + Dynamic Sitting: good Static Standing: good Dynamic Standing: fair + Special Tests: [] Mobility Limitations Standardized Measure [] [facility] AM-PAC 6 clicks Basic Mobility Inpatient Short Form: [] Raw Score: CMS Score: [] Informed Consent/Education: Patient instructed in purpose of PT consult. Assessment: Patient is 83-year-old male presenting with history of falls and recent onset of rhythmic jerking left upper extremity followed by episode of impaired motor control to left upper extremity which resolves within 3 minutes of onset. These episodes were witnessed x 2 by this PT. Patient is unable to volitionally stop the rhythmic jerking. Impaired distal motor control of left hand and wrist after these episodes initially presents with flaccid then returns to full active range of motion. notified and aware although has not witnessed at the time of this eval. Due to these unpredictable episodes patient is at risk for falls and would benefit from further workup prior to discharge. Patient presents with clinical signs and symptoms consistent with current/admitting diagnoses that have resulted to mobility limitations, gait instability, generalized weakness, and impairment of motor control as demonstrated by the following impairment level findings: 1. Decreased motor control to left UE muscle groups 2. Impaired standing balance 3. rhythmic jerking of LUE Impairments are contributing to the following functional limitations: 1. Inability to safely ambulate without assistive device 2. Increase completion time for mobility ADL performance 3. Increased fall risk 4. Decline in ability to safely perform stairs without assistance Patient is assessed as a Moderate complexity based on the following: History: 83-year-old male with impairment level findings, functional limitations, and past medical history as indicated above Examination: Demonstrable impairment in motor control LUE, balance, and mobility level with underlying impairments and functional limitations as documented above Presentation: evolving Decision Making: moderate Goals: Independent bed mobility 2. Independent transfers with least restrictive device 3. Independent ambulation with least restrictive device greater than 200 feet 4. Modified independence 13 stairs with 2 rails to safely enter and exit home Plan of Care/Treatment Plan: Pt would benefit from skilled PT 1-2 times per day until medically appropriate for discharge to facilitate global strengthening, transfers, ambulation, pain management and balance facilitation DISCHARGE RECOMMENDATIONS: Further medical workup of left upper extremity tremor TREATMENT CODE/TIME: 11140 [id number] Thank you for the opportunity to participate in the care of this patient. Alina Garcia PT Please sign an return this page within 30 days if you agree with the above POC. Thank you! Physician Signature Date [facility]
[2024-07-15] MEDS: Normal Saline - Diluent 50 ML VIAL IJ (16:15)
[2024-07-15] MEDS: Omnipaque 350 MG/ML 100 ML BTL 85 ML IJ (16:18)
[2024-07-15] MEDS: Normal Saline Flush 10 ML SYR IVP ×2 (16:19→22:33)
[2024-07-15] MEDS: Insulin Aspart 100 UNITS/ML UNIT 6 UNITS SC ×2 (16:23→17:16)
--- NOTE | 2024-07-15 19:22 | HPE_ITS ---
Date of service: 07/15/24 Time of Service: 19:22 Assessment and Plan Assessment and plan (1) Ataxia: Start date: 07/15/24 Status: Acute Assessment and plan: This is an 83-year-old gentleman with a new onset of left upper extremity tremor and ataxia over the last couple of weeks. He also has generalized weakness and falls. His CT of the head was negative and CTA of the head and neck was not performed but patient did have recommendation by teleneurology to have MRI of the brain with and without contrast. I will do ultrasound of the carotids and echocardiogram with bubble study as well. Teleneurology did not recommend aspirin to the ED provider but I will initiate aspirin since patient is not on aspirin and this could be a TIA. Permissive hypertension is not be indicated with his intermittent symptoms and with the chronicity of this symptom. Patient also will have EEG with question of focal motor seizure on differential diagnosis. There is a question of the colon wall thickening with malignancy and patient did have tubular adenoma with no follow-up colonoscopy in the past. This should be addressed but could be done as an outpatient. Patient did have minimal abdominal discomfort which has resolved. Watch for bleeding with aspirin use. He does have chronic anemia with CKD. Patient is a full code with no previous COLST form available. This should be reviewed by care management team and palliative care consultation should be considered. Patient will be admitted for observation with a multiplicity of his disease processes but mostly stable except for hyperglycemia and new neurological symptoms which are not devastating. (2) Tremor of left hand: Start date: 07/15/24 Status: Acute Assessment and plan: This is a subacute symptom and focal to the left upper hand with rhythmic tremor. This is intermittent. Teleneurology did not recommend treatment for TIA but will maximize atorvastatin dose and load with aspirin with baby aspirin daily. Watch for bleeding. He does have chronic anemia with his CKD. MRI of the brain with and without contrast as recommended and continue with PT and speech therapy patient also having some speech difficulties at times. (3) Generalized weakness: Start date: 07/15/24 Status: Acute Assessment and plan: Over the last couple weeks this is worsened and may be associated with his new left upper extremity symptoms. Follow-up imaging and evaluation as planned. (4) Frequent falls: Status: Chronic Assessment and plan: This is worsened recently with patient more weak. Negative CT of the head. PT evaluation for return home. (5) Diffuse abdominal pain: Status: Chronic Assessment and plan: Patient does have a history of tubular adenoma late 2015 with patient refusing colonoscopy in 2018. Question of abnormality on CT recommends follow-up colonoscopy which should be discussed with family. He is treated for constipation chronically and has no signs of obstruction. There is no evidence of acute infection or colitis other than CT findings which may be more indicative of possible malignancy. (6) Hyponatremia: Status: Acute Assessment and plan: Mild with observation without intervention at this time. He is chronically on hydrochlorothiazide with other electrolytes normal. (7) Type II diabetes mellitus: Status: Chronic Assessment and plan: Patient is [id number] presently but not taking his medications as prescribed at home. He did receive 2 doses of regular insulin in the ED and will continue on before meals and at bedtime glucometer measurements with moderate sliding scale. Diabetic diet. (8) Essential hypertension: Status: Chronic Assessment and plan: Will be elevated with patient not to have permissive hypertension though there is a question of TIA lower on the differential diagnosis with focal tremor more concern. Continue usual outpatient medical therapy. (9) Hyperlipidemia: Status: Chronic Assessment and plan: With question of TIA patient will be placed on high-dose atorvastatin. (10) CKD (chronic kidney disease): Status: Chronic Assessment and plan: This appears stable with patient not appearing dehydrated. Follow-up lab. No IV fluids at this time with patient having echocardiogram in the morning. History of Present Illness History of Present Illness Chief Complaint: Shaking and discoordination of the left upper extremity. Narrative: This is an 83-year-old male patient who has had problems with lack of control of his left upper extremity intermittently over weeks with some discomfort when attempting to urinate with his hand not helping with his toileting though urination does not appear to cause worsening of his shakes. His shakes do come and go. He also notices weakness of his upper extremities bilaterally but only has a tremor in his left upper extremity. He complains of weakness in his legs as well as that he cannot hold himself up at times. This has been progressive and patient reports to ED for evaluation. He did have diffuse abdominal discomfort in the ED but this has resolved and CT of the abdomen and pelvis did show some wall thickening of his large intestine which needs follow-up because of a history of tubular adenoma without follow-up colonoscopy documented since 2014. Patient is a vague historian. ED evaluation was considering possible seizure activity in the left upper extremity versus TIA but did not recommend aggressive treatment for possible stroke with CTA not performed. CT of the head did reveal no injury patient falling hitting his head with his increased weakness recently. He is not on anticoagulation. He does take medicines for blood pressure. He will be admitted for observation and MRI without contrast of the brain as suggested by teleneurology as well as EEG if available. I will initiate aspirin please with patient not on anticoagulation because of the question of TIA with his focal neurological complaints which are intermittent. Echo with bubble study will be performed as well. Telemetry was applied and patient did appear to have intermittent Mobitz type I second-degree AV block at times. This was asymptomatic. This could be contributing to his generalized weakness and falling. The patient does not offer history of true syncope. Patient is a full code. Review of Systems Narrative: 13 point review of systems otherwise unrevealing or stable. Patient does have difficulty urinating at times. PFSH All Active Problems (Updated 07/15/24 @ 19:53 by Justen Anderson) Diffuse abdominal pain (Chronic) Hyponatremia (Acute) Frequent falls (Chronic) Tremor of left hand (Acute) CKD (chronic kidney disease) (Chronic) Ataxia (Acute) Hyperglycemia (Acute) Generalized weakness (Acute) Focal motor seizure (Acute) Depression (Chronic) Depressive disorder (Chronic 10/22/11) Urinary hesitancy due to benign prostatic hyperplasia (Acute) Diverticula of colon (Acute) Tubular adenoma of colon (Acute 06/26/15) Type II diabetes mellitus (Chronic 12/29/12) A1C goal 7.5 Erectile dysfunction (Acute 10/22/11) Essential hypertension (Chronic 12/29/12) FRS 30% Hyperlipidemia (Chronic 12/24/12) PCEq risk 40%;baseline LDL 140 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) RBC microcytosis (Acute 12/30/12) NL B12 04/2005 Obesity (Acute 12/31/13) Other and unspecified hyperlipidemia (Acute 12/24/12) PCEq risk 40%;baseline LDL 140 Medical History High cholesterol Hypertension Depressive disorder, not elsewhere classified (10/22/11) Colonoscopy refused (04/06/18) Surgical History History of colonoscopy (~01/2023) 01/2023, 06/2019 Arthroscopy L knee Social History Smoking/Tobacco Use Status: Former Tobacco Use Smoking risk assessment performed?: Yes Alcohol Intake: current Alcohol Intake frequency: a few times a month Alcohol type: beer Drug use: Never Substance use type: does not use Household members: spouse Housing: house Communication Needs: Corrective Lenses What is your relationship status?: Panel score (0-1 are the most socially isolated patients): 1 What type of physical activity do you participate in: other Details: snow shoveling in winter and gardening in summer Frequency: daily Do you feel safe at home: Yes Do you feel safe in your relationship?: Yes Meds Allergies and Home Medications Allergies Allergy/AdvReac Type Severity Reaction Status Date / Time No Known Allergies Allergy Verified 01/20/24 11:59 Home Medications ?Medication ?Instructions ?Recorded ?Confirmed ?Type cyclobenzaprine 5 mg tablet 5 mg PO QHS PRN muscle spasm #7 06/21/22 07/15/24 Rx tabs acetaminophen 500 mg tablet 500 mg PO BID 11/12/22 07/15/24 History (Tylenol Extra Strength) blood sugar diagnostic #100 ea 12/09/22 01/20/24 Rx atorvastatin 40 mg tablet See Rx Instructions .Route 06/24/23 07/15/24 Rx .COMPLEX #90 tabs metformin 500 mg tablet See Rx Instructions .Route 09/15/23 07/15/24 Rx .COMPLEX #360 tabs doxepin 25 mg capsule 25 mg PO QHS #30 caps 01/20/24 07/15/24 Rx empagliflozin 25 mg tablet 25 mg PO DAILY #90 tabs 01/20/24 07/15/24 Rx (Jardiance) citalopram 20 mg tablet See Rx Instructions .Route 05/26/24 07/15/24 Rx .COMPLEX #90 tabs glipizide 2.5 mg tablet, extended See Rx Instructions .Route 05/26/24 07/15/24 Rx release 24 hr .COMPLEX #90 tabs hydrochlorothiazide 25 mg tablet See Rx Instructions .Route 05/26/24 07/15/24 Rx .COMPLEX #90 tabs lisinopril 10 mg tablet See Rx Instructions .Route 05/26/24 07/15/24 Rx .COMPLEX #90 tabs tamsulosin 0.4 mg capsule See Rx Instructions .Route 05/26/24 07/15/24 Rx .COMPLEX #180 caps bisacodyl 5 mg tablet,delayed 5 mg PO ONCE PRN 07/15/24 07/15/24 History release (Alophen (bisacodyl)) calcium polycarbophil 625 mg 625 mg PO ONCE PRN 07/15/24 07/15/24 History tablet (Fiber (calcium polycarbophil)) perfect amino 5,000 mg PO DIRECTED 07/15/24 07/15/24 History pro dentin 20 mg PO DIRECTED 07/15/24 07/15/24 History sennosides 8.6 mg tablet (Natural 50 - 100 mg PO ONCE PRN 07/15/24 07/15/24 History Senna Laxative) Exam Narrative Exam Narrative: General: Patient appears appropriate for age, in no acute distress, alert and oriented to person, place and time. He is attended by his who has severe dementia. 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 HEENT: Normocephalic, eyes with pupils equal and reactive to light symmetrically, extraocular move intact. Oropharynx with moist Ko[place]. Neck: Supple without JVD or auscultated bruits. Back: To posture without CVA tenderness. Lungs: Clear to auscultation percussion with no focalizing rales or rhonchi. Heart: Irregular rhythm with normal rate, systolic murmur left sternal border with no gallops or rubs. Abdomen: Normal contour, soft nontender to palpation no palpable hepatosplenomegaly. No guarding or rebound abdominal exam. Bowel sounds positive in all quadrants. Genitalia/rectal: Exam deferred. Extremities: No clubbing, cyanosis or grossly pitting edema. Fair capillary refill. Diffuse muscle wasting. Skin: Normal color, warm and dry. Neuro: Cranial nerves II through XII gross intact, no focal motor deficits though patient does have slight discoordination of his left upper extremity intermittently with rhythmic tremor noted in the ED by observers. No Babinski's. DTRs physiologic and symmetrical. Psych: Normal affect and mood. No abnormal thought processes. Remote previous memory grossly intact. Results Imaging Imaging Studies: EXAM: CT HEAD WO CLINICAL HISTORY: falls, generalized weakness. TECHNIQUE: Imaging Protocol: Axial computed tomography images with coronal and sagittal reformatted images were created and reviewed COMPARISON: No exams were available for comparison FINDINGS: Ventricles and Extra axial spaces: Normal in size and morphology for the patient's age. Hemorrhage: None. Cerebral parenchyma: No evidence of an acute territorial infarct. No mass effect is identified. Midline shift: None. Brainstem/Cerebellum: Normal. Calvarium: Normal. Visualized Paranasal sinuses/Mastoids: Clear. Soft Tissues: Unremarkable. IMPRESSION: No acute intracranial process. EXAM: CT ABDOMEN PELVIS W CLINICAL HISTORY: diffuse abdominal tenderness TECHNIQUE: Imaging Protocol: Axial computed tomography images with coronal and sagittal reformatted images were created and reviewed. CONTRAST MATERIAL: Intravenous: Omnipaque 350 Contrast volume:85 mL Oral: No COMPARISON: No exams were available for comparison FINDINGS: ABDOMEN: Lung Bases: No acute abnormality. Liver: Normal density. No measurable mass. Portal, Superior Mesenteric, and Splenic Veins: Unremarkable. Gallbladder and Biliary Tract: No radiodense calculus or dilation. Pancreas: Normal density, no abnormal calcifications or inflammatory process. Spleen: There is a thin 3 mm subcapsular collection at the superior aspect of the spleen. Adrenals: No masses seen. Kidneys: Normal size, contour and axis. No nephrolithiasis. Nonspecific mild dilatation of the ureters is noted. No obstructing lesion/calcification is seen. There is a small simple cyst in the right kidney. No follow-up is recommended. There is a circum aortic left renal vein. Abdominal Aorta: Abdominal portion non-dilated. Atherosclerotic calcification is present. Bowel: There is diverticulosis of the colon without evidence of acute diverticulitis. No evidence of bowel obstruction. There is wall thickening at the ileocecal junction. (Series 10, images 105-118.). Appendix is unremarkable. Peritoneal Cavity: No ascites, collection or mesenteric inflammatory response. No free air. Lymph Nodes: Within normal limits. Bones: Within normal limits for the patient's age. Soft Tissues: Unremarkable. PELVIS: Bladder: The bladder is distended. Diverticula are seen at the superior and posterior aspect of the urinary bladder. No intraluminal mass is appreciated. Reproductive Organs: The prostate gland is enlarged. Lymph Nodes: Within normal limits. Bones: Within normal limits for the patient's age. IMPRESSION: 1. Wall thickening seen in the distal ileum. Differential considerations include infectious or inflammatory process versus a neoplastic process. Follow- up should be considered with a small-bowel follow-through and or barium enema/colonoscopy. 2. Enlarged prostate gland. 3. Distended urinary bladder with mild dilatation of both ureters which may be the result of chronic bladder outlet obstruction. Urinary bladder diverticula are seen. 4. 3 mm subcapsular collection of the superior aspect of the spleen. This is non-specific. This may represent an old subcapsular hematoma. No evidence of active hemorrhage. Abscess is considered less likely. Labs 07/15/24 15:03 07/15/24 15:03 Labs: Laboratory Results - last 24 hr 07/15/24 07/15/24 14:35 15:03 WBC 6.28 RBC 3.87 L Hgb 12.4 L Hct 35.9 L MCV 93 MCH 32.0 MCHC 34.5 RDW 11.9 Plt Count 190 MPV 10.8 Immature Gran % 0.3 Neutrophils % 72.6 Lymphocytes % 14.6 Monocytes % 8.1 Eosinophils % 4.1 Basophils % 0.3 Nucleated RBC % 0.0 Absolute Neutrophils 4.55 Absolute Lymphocytes 0.92 L Absolute Monocytes 0.51 Absolute Eosinophils 0.26 Absolute Basophils 0.02 VBG Lactate 1.3 Sodium 135 L Potassium 4.2 Chloride 101 Carbon Dioxide 24.2 Anion Gap 9.8 BUN 29 H Creatinine 1.5 H Est GFR (CKD-EPI 2020) 45.91 Glucose 522 H* Calcium 8.5 Magnesium 1.8 Total Bilirubin 1.14 H AST 13 L ALT 20 Alkaline Phosphatase 114 Troponin I 7 NT-Pro-B Natriuret Pep 156 Total Protein 6.2 L Albumin 2.8 L Procalcitonin < 0.10 Urine Color Yellow Urine Clarity Clear Urine pH 5.0 Ur Specific [place] <= 1.005 Urine Protein Negative Urine Ketones Trace H Urine Blood Trace-lysed H Urine Nitrite Negative Urine Bilirubin Negative Urine Urobilinogen 0.2 Ur Leukocyte Esterase Negative Urine RBC 0-2 Urine WBC 5-10 Ur Epithelial Cells Rare Urine Crystals Negative Urine Bacteria Rare Urine Casts Negative Urine Mucus Negative Ur Culture Indicated? No Urine Glucose >=1000 H Last Vital Signs Temp 37.3 C 07/15/24 14:51 Pulse 66 07/15/24 14:51 Resp 18 07/15/24 15:07 BP 141/77 H 07/15/24 14:51 Pulse Ox 95 07/15/24 14:51 PAWSS Have you Been Recently Intoxicated or Drunk Within the Last 30 days?: No Have you Ever Experienced Previous Episodes of Alcohol Withdrawal?: No Have you ever Experienced Withdrawal Seizures?: No Have you ever Experienced Delirium Tremens(DT)s?: No Have you ever undergone Alcohol Rehabilitation Treatment (i.e, inpt ot outpatient treatment programs)?: No Have you ever Experienced Blackouts?: No Have you ever Combined Alcohol with other Downers within the last 90 days?: No Have you ever Combined Alcohol with any other Substance of Abuse during the last 90 days?: No Positive Blood Alcohol level on Presentation? [PCS.BAL]: No Evidence of Increased Autonomic Activity (i.e. HR>120, tremor, sweating, agitation, nausea)?: No Result: 0 Time Spent Time spent with Patient: >75 minutes Time was spent: preparing to see the patient(eg.review tests), obtaining and/or reviewing separately otained hiistory, ordering medications,tests, procedures, referring, communicating with other health medicare specialist, indepentently interpreting results, counseling the patient and care coordination
--- NOTE | 2024-07-15 22:01 | W.PC.ACHO ---
Registration Status: Primary Language: Preferred Language: ED Information & Data Chief Complaint GenMedical 07/15/24 15:26 Triage Note 2 weeks increased weakness. 07/15/24 14:30 multiple falls. fever. high blood sugars. thinks he stopped metformin a couple weeks ago. denies SOB. Medical / Surgical History (Last Reviewed 07/15/24 @ 19:23 by Justen Anderson) High cholesterol Hypertension Depressive disorder, not elsewhere classified (10/22/11) Colonoscopy refused (04/06/18) (Last Reviewed 07/15/24 @ 19:23 by Justen Anderson) History of colonoscopy (~01/2023) Arthroscopy Most Recent Vital Signs Temperature 36.3 C L 07/15/24 21:27 Temperature Source Temporal Artery Scan 07/15/24 21:21 Pulse 65 07/15/24 21:27 Pulse Rhythm Regular 07/15/24 21:27 Respiratory Rate 18 07/15/24 21:27 Respiratory Effort Normal, Non-Labored 07/15/24 21:27 Respiratory Depth Normal 07/15/24 21:27 Respiratory Pattern Normal 07/15/24 21:27 Blood Pressure 130/63 07/15/24 21:27 Blood Pressure Mean 88 07/15/24 20:03 Pulse Oximetry 95 07/15/24 21:27 Oxygen Delivery Method Room Air 07/15/24 21:27 Oxygen Flow Rate 0 07/15/24 21:27 Pain Level 0 07/15/24 21:27 Comment stated fever per 07/15/24 14:51 Allergies No Known Allergies Allergy (Verified 01/20/24 11:59) Active Medications Generic Name Dose Route Start Last Admin Trade Name Jose PRN Reason Stop Dose Admin Iohexol 85 ml 07/15/24 16:15 07/15/24 16:18 Omnipaque 350 Mg/Ml 100 Ml Btl IJ 08/14/24 23:59 85 ml DIRECTED SHYLA Administration IV IV Catheter Type [Left Peripheral IV Antecubital] IV Catheter Gauge [Left 20 Antecubital] Diet Orders Category Date Time Status Diabetes Consistent CHO/Heart Healthy [DIET] Nutrition 07/16/24 Breakfast Ordered Diagnostics 07/15/24 07/15/24 07/15/24 Range/Units 21:17 19:50 15:03 WBC 6.28 (4.4-10.8) 10^3/uL RBC 3.87 L (4.36-5.78) 10^6/uL Hgb 12.4 L (13.5-17.5) g/dL Hct 35.9 L (40.0-50.0) % MCV 93 (80-95) fL MCH 32.0 (27.0-33.0) pg MCHC 34.5 (32.0-36.0) % RDW 11.9 (11.8-14.1) % Plt Count 190 (130-400) 10^3/uL MPV 10.8 (8.0-11.0) fL Immature Gran % 0.3 % Neutrophils % 72.6 % Lymphocytes % 14.6 % Monocytes % 8.1 % Eosinophils % 4.1 % Basophils % 0.3 % Nucleated RBC % 0.0 (0.0-0.3) % Absolute Neutrophils 4.55 (1.2-6.7) 10^3/uL Absolute Lymphocytes 0.92 L (1.2-3.4) 10^3/uL Absolute Monocytes 0.51 (0.1-0.8) 10^3/uL Absolute Eosinophils 0.26 (0.0-0.7) 10^3/uL Absolute Basophils 0.02 (0.0-0.2) 10^3/uL PT Pending INR Pending VBG Lactate 1.3 (0.6-1.4) mmol/L Sodium 135 L (136-145) mmol/L Potassium 4.2 (3.5-5.1) mmol/L Chloride 101 (98-107) mmol/L Carbon Dioxide 24.2 (21.0-32.0) mmol/L Anion Gap 9.8 (3-11) mmol/L BUN 29 H (7-18) mg/dL Creatinine 1.5 H (0.70-1.30) mg/dL Est GFR (CKD-EPI 2020) 45.91 (mL/min/1.73m2) Glucose 522 H* (74-106) mg/dL Calcium 8.5 (8.5-10.1) mg/dL Magnesium 1.8 (1.8-2.4) mg/dL Total Bilirubin 1.14 H (0.2-1.0) mg/dL AST 13 L (15-37) U/L ALT 20 (16-63) U/L Alkaline Phosphatase 114 (46-116) U/L Troponin I 7 (<or=76) ng/L NT-Pro-B Natriuret Pep 156 (<300) pg/mL Total Protein 6.2 L (6.4-8.2) g/dL Albumin 2.8 L (3.4-5.0) g/dL Procalcitonin < 0.10 ng/mL TSH Pending Urine Color (Yellow) Urine Clarity (Clear) Urine pH (5-8) Ur Specific [place] (1.005-1.025) Urine Protein (Neg-Trace) mg/dL Urine Ketones (Negative) mg/dL Urine Blood (Negative) Urine Nitrite (Negative) Urine Bilirubin (Negative) Urine Urobilinogen (Up to 0.2) mg/dL Ur Leukocyte Esterase (Negative) Urine RBC (0-2) HPF Urine WBC (0-5) HPF Ur Epithelial Cells (Negative) HPF Urine Crystals (Negative) HPF Urine Bacteria (Negative) HPF Urine Casts (Negative) LPF Urine Mucus (Negative) Ur Culture Indicated? Urine Glucose (Negative) mg/dL COVID-19 Source Pending SARS-CoV-2 (PCR) Pending 07/15/24 Range/Units 14:35 WBC (4.4-10.8) 10^3/uL RBC (4.36-5.78) 10^6/uL Hgb (13.5-17.5) g/dL Hct (40.0-50.0) % MCV (80-95) fL MCH (27.0-33.0) pg MCHC (32.0-36.0) % RDW (11.8-14.1) % Plt Count (130-400) 10^3/uL MPV (8.0-11.0) fL Immature Gran % % Neutrophils % % Lymphocytes % % Monocytes % % Eosinophils % % Basophils % % Nucleated RBC % (0.0-0.3) % Absolute Neutrophils (1.2-6.7) 10^3/uL Absolute Lymphocytes (1.2-3.4) 10^3/uL Absolute Monocytes (0.1-0.8) 10^3/uL Absolute Eosinophils (0.0-0.7) 10^3/uL Absolute Basophils (0.0-0.2) 10^3/uL PT INR VBG Lactate (0.6-1.4) mmol/L Sodium (136-145) mmol/L Potassium (3.5-5.1) mmol/L Chloride (98-107) mmol/L Carbon Dioxide (21.0-32.0) mmol/L Anion Gap (3-11) mmol/L BUN (7-18) mg/dL Creatinine (0.70-1.30) mg/dL Est GFR (CKD-EPI 2020) (mL/min/1.73m2) Glucose (74-106) mg/dL Calcium (8.5-10.1) mg/dL Magnesium (1.8-2.4) mg/dL Total Bilirubin (0.2-1.0) mg/dL AST (15-37) U/L ALT (16-63) U/L Alkaline Phosphatase (46-116) U/L Troponin I (<or=76) ng/L NT-Pro-B Natriuret Pep (<300) pg/mL Total Protein (6.4-8.2) g/dL Albumin (3.4-5.0) g/dL Procalcitonin ng/mL TSH Urine Color Yellow (Yellow) Urine Clarity Clear (Clear) Urine pH 5.0 (5-8) Ur Specific [place] <= 1.005 (1.005-1.025) Urine Protein Negative (Neg-Trace) mg/dL Urine Ketones Trace H (Negative) mg/dL Urine Blood Trace-lysed H (Negative) Urine Nitrite Negative (Negative) Urine Bilirubin Negative (Negative) Urine Urobilinogen 0.2 (Up to 0.2) mg/dL Ur Leukocyte Esterase Negative (Negative) Urine RBC 0-2 (0-2) HPF Urine WBC 5-10 (0-5) HPF Ur Epithelial Cells Rare (Negative) HPF Urine Crystals Negative (Negative) HPF Urine Bacteria Rare (Negative) HPF Urine Casts Negative (Negative) LPF Urine Mucus Negative (Negative) Ur Culture Indicated? No Urine Glucose >=1000 H (Negative) mg/dL COVID-19 Source SARS-CoV-2 (PCR) [employer] Documentation Fingerstick Glucose Start: 07/15/24 16:53 Freq: .Stat Status: Active Protocol: Activity Type Activity Date Activity User E-sign Co-sign Detail Recorded Client Recorded Date Recorded By Document 07/15/24 18:24 AP [id number] 07/15/24 18:24 AP Intake and Output - 24 Hour Total 07/15/24 14:26 thru 07/15/24 21:27 Output Total 200 Balance -200 Weight 74.984 kg Output: Urine 200 Falls Risk Assessment History of Falls Admit Due to Fall 07/15/24 21:27 Contributing Factors Confusion,Impairments, 07/15/24 21:27 Incontinence Ambulatory Aids Independent 07/15/24 21:27 Tubes/Lines None 07/15/24 21:27 Gait Evaluation W/no contributing factors 07/15/24 21:27 Cognition Cognitive impairment 07/15/24 21:27 Fall Total Score 59 07/15/24 21:27 Level of Risk High Risk 07/15/24 21:27 Problems (Last Reviewed 07/15/24 @ 19:23 by Justen Anderson) Diffuse abdominal pain (Chronic) Hyponatremia (Acute) Frequent falls (Chronic) Tremor of left hand (Acute) CKD (chronic kidney disease) (Chronic) Ataxia (Acute) Hyperglycemia (Acute) Generalized weakness (Acute) Focal motor seizure (Acute) Type II diabetes mellitus (Chronic 12/29/12) Essential hypertension (Chronic 12/29/12) Hyperlipidemia (Chronic 12/24/12) v v v v v v v v v Sending and/or Receiving Nurses: Please use comment section below to note any information pertinent to the patient hand-off not included above. Information / Comments: Pt is a+ox3, increased weakness and new onset of tremors in left arm. Pt is unclear on recalling if he has been taking his metformin appropriately or not. pt is up at jesús at home, is using walker in ED. VSS. is staying with pt for the evening. Report received from: Julianna Miller RN
[2024-07-15] MEDS: Atorvastatin 40 MG TAB 80 MG PO (22:33)
[2024-07-15] MEDS: Heparin 5,000 UNITS/ML VIAL 5000 UNITS SC (22:33)
[2024-07-15] MEDS: Aspirin 325 MG TAB PO (22:33)
[2024-07-15 22:50] LABS: TSH (W/Ref FT4) 2.38 uIU/mL (0.36-3.74)
[2024-07-15] MEDS: Doxepin 25 MG CAP PO (23:00)
[2024-07-16 02:00] VITALS: BP 103/76; PULSE 62; RESP 16; TEMP 36.8; O2SAT 96
[2024-07-16] MEDS: Heparin 5,000 UNITS/ML VIAL 5000 UNITS SC ×2 (06:17→14:40)
[2024-07-16 06:37] LABS: Source Nasal/Nares
[2024-07-16 06:44] LABS: HCT 39.7 % (40.0-50.0); HGB 13.6 g/dL (13.5-17.5); MCH 31.9 pg (27.0-33.0); MCHC 34.3 % (32.0-36.0); MCV 93 fL (80-95); MPV 10.8 fL (8.0-11.0); Platelet Count 198 10^3/uL (130-400); RBC 4.27 10^6/uL (4.36-5.78); RDW 12.1 % (11.8-14.1); RDW-SD 40.9 fL; WBC 5.83 10^3/uL (4.4-10.8)
[2024-07-16 06:51] LABS: Prothrombin Time 10.4 sec (9.1-11.1)
[2024-07-16 07:11] LABS: COVID-19 PCR Negative (Negative)
[2024-07-16 07:22] LABS: ALT 16 U/L (16-63); AST 15 U/L (15-37); Albumin 2.9 g/dL (3.4-5.0); Alkaline Phosphatase 115 U/L (46-116); Anion Gap 10.6 mmol/L (3-11); BUN 20 mg/dL (7-18); CO2 24.4 mmol/L (21.0-32.0); CREATININE 1.1 mg/dL (0.70-1.30); Calcium 9.1 mg/dL (8.5-10.1); Chloride 98 mmol/L (98-107); Estimated GFR 66.61 (mL/min/1.73m2); Glucose 238 mg/dL (74-106); Magnesium 1.9 mg/dL (1.8-2.4); Potassium 3.4 mmol/L (3.5-5.1); Sodium 133 mmol/L (136-145); Total Protein 6.9 g/dL (6.4-8.2)
--- NOTE | 2024-07-16 08:00 | DI.US_ITS ---
APPROVED REPORT EXAM: Comprehensive 2D, Doppler, and color-flow Echocardiogram Patient Location: In-Patient Room/Bed: 225 Service Line Layer: Barb Alves RDCS (AE) Indications: New onset left upper extremity tremor/ataxia Echo Enhancing Agent Indication: Rule out Shunt Agent(s) / Amount(s) Used: Agitated Saline 30.0 cc Comments: Contrast study was performed with 3 IV injections of 10ccs of agitated normal saline, at re st, with cough and post valsalva maneuver. Negative contrast study for shunt flow. Other Information Study Quality: Fair. Technically limited study due to body habitus, inability to position patient exa m done supine. Conclusion Normal left ventricular wall thickness and chamber size. Ejection fraction is 55%. Wall motion is n ormal Normal right ventricular size and function Mildly dilated left atrium. Normal right atrial size Aortic valve is sclerotic with trace regurgitation Mitral annular calcification, mild mitral regurgitation Mild tricuspid regurgitation. Estimated right ventricular systolic pressure is 26 mmHg Please note that evaluation for intracardiac shunting is not indicated in this age group Mildly dilated ascending aorta 3.7 cm Wall motion Left Ventricle The left ventricle is normal size. The overall left ventricular systolic function appears normal. The re is normal left ventricular wall thickness. Regional wall motion is not well visualized but grossly normal. There is no ventricular septal defect visualized. LVEF is 55%. Right Ventricle Right ventricle is grossly normal in size. Right ventricular systolic function is grossly normal. Atria Left atrium is mildly dilated The right atrium size is normal. Saline bubble contrast intravenous inj ection does not demonstrate PFO. Aortic Valve The Aortic valve is sclerotic. Aortic valve is trileaflet. There is no aortic valvular stenosis. Trac e aortic regurgitation. Mitral Valve Mild mitral annular calcification. No evidence of mitral valve stenosis. Mild mitral regurgitation. Tricuspid Valve The tricuspid valve is normal in structure. There is no tricuspid valve stenosis. Mild tricuspid regu rgitation. The RVSP is 26.5 mmHg. Pulmonic Valve The pulmonary valve is normal in structure. There is no pulmonic valvular stenosis. There is no pulmo dominique valvular regurgitation. Great Vessels The aortic root is normal in size. The ascending aorta is mildly dilated. Aortic arch is not well vis ualized. IVC is normal in size and collapses >50% with inspiration. Pericardium There is no pericardial effusion. 2D Dimensions IVSD d PLAX 1.00 cm M: 0.6-1.2 Ao Root d 3.05 cm M: 3.1 - 3.7 LVPW d PLAX 1.02 cm M: 0.6 - 1.2 Ao Asc Diam d 3.70 cm M: 2.6 - 3.4 LVID d PLAX 4.19 cm M: 4.2 - 5.8 LVDs 3.00 cm M: 2.5 - 4.0 LV EF Teichholz 55.3 % FS 28.43 % LV EDV (Teich) 78.0 mL LV ESV (Teich) 34.9 mL M-Mode TAPSE 2.23 cm (M/F) >1.7 Auto EF LV EDV A4C 81.2 mL LV EDV A2C 88.7 mL LV EDV BP 85.3 mL LV ESV A4C 40.3 mL LV ESV A2C 40.4 mL LV ESV BP 40.4 mL LVEF(%) A4C 50.4 % LVEF(%) A2C 54.5 % LVEF(%) BP 52.7 % LV SV A4C 40.9 ml LV SV A2C 48.3 ml LV SV BP 45.0 ml LV CO A4C 2.2 L/min LV CO A2C 2.7 L/min LV CO BP 2.5 L/min HR A4C 54.71 BPM HR A2C 55.30 BPM LV EDV Index (BP) LA Volume LA Length A4C 6.5 cm LA Length A2C 5.4 cm LA Area A4C s 19.65 cm2 LA Area A2C s 14.02 cm2 LA Vol A4C A-L 50.72 mL LA Vol A2C A-L 30.83 mL LA Vol Biplane A-L 43.2 mL LA Vol/BSA A4C A-L LA Vol/BSA A2C A-L LA Vol/BSA BP A-L 23.5 mL/m2 LA Vol A4C MOD 47.8 mL LA Vol A2C MOD 28.5 mL LA Vol BP MOD 40.3 mL RA Volume RA Area A4C 13.7 cm2 RA ESV A4C (A-L) 32.1mL RA Vol/BSA A4C A-L RA Length A4C 5.0 cm RA ESV A4C (MOD) 30.6mL LV Diastology MV E' medial 0.049 (>0.07 m/s) MV E Vmax 0.64 (0.4-1.3 m/s) MV E/E' MED 13.06 (<14) MV A Vmax 1.25 (0.4-1.3 m/s) MV E' lateral 0.072 (>0.1 m/s) E/A Ratio 0.5 MV E/E' LAT 8.86 (<14) MV E' Average 0.061 m/s MV E/E'(average) 10.56 Aortic Valve AoV Vmax 1.62 m/s LVOT Vmax 1.48 m/s AoV Peak Grad 10.5 mmHg LVOT Peak Grad 8.8 mmHg AoV Area (Vmax) 2.46 cm2 LVOT VTI 0.272 m AoV VTI 0.297 m LVOT Mean Grad 3.8 mmHg AoV Mean Kit. 1.04 m/s LVOT SV 73.00 mL AoV Mean Grad 5.1 mmHg LVOT Diam s 1.80 cm AoV Area (VTI) 2.46 cm2 AV Regurg Peak Gr. 10.47 mmHg Velocity Ratio 0.91 Mitral Valve MV DT 354 (160-240 msec) MV Vmax TIPS 1.37 m/s MV Mean Grad 2.0 (<2mmHg) MV VTI 0.304 m Pulmonary Valve PV Vmax 0.99 (0.5-1.5 m/s) RVOT Vmax 0.85 m/s PV Peak Grad 4.0 mmHg RVOT Peak Gr. 2.9 mmHg PV Mean Kit 0.80 m/s RVOT VTI 0.183 m PV Mean Grad 2.7 mmHg RVOT Mean Gr. 1.4 mmHg Tricuspid Valve RA Pressure 3.00 mmHg TR Vmax 2.42 m/s TV S' 0.14 m/s TR Peak Grad 23.5 mmHg RVSP (TR) 26.5 mmHg
--- NOTE | 2024-07-16 08:00 | DI.MRI_ITS ---
Exam(s) MR BRAIN WO/W EXAM: MR BRAIN WO/W CLINICAL HISTORY: New left upper extremity tremor. TECHNIQUE: Multiplanar multisequence MRI of the brain was performed. CONTRAST MATERIAL: IV Contrast: 15 ML of Dotarem contrast administered. COMPARISON: CT CT HEAD WO from 07/15/2024 FINDINGS: VENTRICLES AND EXTRA AXIAL SPACES: Normal in size and morphology for the patient's age. HEMORRHAGE: No acute hemorrhage. CEREBRAL PARENCHYMA: No focus of restricted diffusion to suggest acute infarct. No space-occupying le esteban identified. Atrophy consistent with the patient's age. Scattered high signal foci in the whi te matter consistent with microvascular changes. BRAINSTEM/CEREBELLUM: Normal. CALVARIUM: Normal. ENHANCEMENT: Curvilinear area of enhancement within the sulci in the high right frontal parietal josefina on. Associated with signal void on SWI images, consistent with a small vascular malformation or smal l aberrant vessel. VISUALIZED PARANASAL SINUSES/MASTOIDS: Clear. Orbits: Unremarkable. Pituitary: Not enlarged. Vasculature: Normal flow voids. IMPRESSION: No acute abnormality. Curvilinear area of enhancement within the sulci in the high right frontal parietal region. Associate d with signal void on SWI images, consistent with a small vascular malformation or small aberrant ves juan carlos. DATA REPOSITORY:
--- NOTE | 2024-07-16 08:00 | DI.US_ITS ---
Exam(s) US CAROTID EXAM: US CAROTID CLINICAL HISTORY: New left upper extremity tremor/ataxia. TECHNIQUE: Ultrasound carotids performed using grayscale, color-flow, and spectral Doppler imaging. COMPARISON: No exams were available for comparison FINDINGS: RIGHT CAROTID ARTERY: Plaque: Small focal plaque noted at right common carotid bulb. Minimal plaque at the proximal internet network specialist al and external carotid arteries. Velocity elevation: Mild systolic velocity elevation in the proximal external carotid artery LEFT CAROTID ARTERY: Plaque: Mild plaque left common carotid bulb and proximal internal carotid artery. Plaque noted prox imal external carotid artery. Velocity elevation: Mild systolic velocity elevation of proximal external carotid artery. VERTEBRAL ARTERIES: Antegrade flow. Measurements: R Bulb: 100cm/s PS / 14.2cm/s ED R CCA: 96.8cm/s PS / 16cm/s ED R ECA: 130.2cm/s PS / 0cm/s ED R ICA Prox: 69.5cm/s PS / 19.2cm/s ED R ICA Mid: 67.1cm/s PS / 17cm/s ED R ICA Distal: 66cm/s PS /18.1cm/s ED R Vert: 53cm/s PS / 9.7cm/s ED R SVR: 1 R DVR: 0.9 L Bulb: 102.3cm/s PS / 24.7cm/s ED L CCA: 92.1cm/s PS / 17.8cm/s ED L ECA: 122.7cm/s PS / 0cm/s ED L ICA Prox: 104.9cm/s PS / 19.1cm/s ED L ICA Mid: 48.1cm/s PS / 9.5cm/s ED L ICA Distal: 60cm/s PS / 21.8cm/s ED L Vert: 55.3cm/s PS / 0cm/s ED L SVR: 1.1 L DVR: 1.1 IMPRESSION: No evidence for hemodynamically significant internal carotid artery stenosis. Criteria for Carotid Stenosis: Normal: ICA PSV <125 cm/s no plaque or intimal thickening is visible. <50% stenosis: ICA PSV <125 cm/s and plaque or intimal thickening is visible. 50-69% stenosis: ICA PSV is 125-250 cm/s and plaque is visible. >70% stenosis to near occlusion: ICA PSV >250 cm/s with visible plaque and luminal narrowing. DATA REPOSITORY:
[2024-07-16 08:14] VITALS: BP 128/71; PULSE 61; RESP 16; TEMP 36.6; O2SAT 94
[2024-07-16] MEDS: Aspirin 81 MG CHEW CH (08:17)
[2024-07-16] MEDS: Lisinopril 10 MG TAB PO (08:17)
[2024-07-16] MEDS: Citalopram 20 MG TAB PO (08:17)
[2024-07-16] MEDS: Tamsulosin 0.4 MG CAPCR PO (08:17)
[2024-07-16] MEDS: Empaglifozin 25 MG TAB PO (08:18)
[2024-07-16] MEDS: hydroCHLOROthiazide 25 MG TAB PO (08:25)
[2024-07-16] MEDS: Insulin Aspart 300 UNITS/3 ML PEN SC ×2 (08:29→12:41)
[2024-07-16] MEDS: Normal Saline Flush 10 ML SYR IVP ×2 (08:58→11:56)
[2024-07-16 11:08] VITALS: O2SAT 94
--- NOTE | 2024-07-16 11:12 | PTTR_ITS ---
PT Notes Visit Reasons: Left upper extremity intermittent tremor with atax Inpatient Physical Therapy Treatment Note [facility] Date:07/16/2024 PRECAUTIONS:Fall risk, Standard SUBJECTIVE: Pt reports he has to use the bathroom. He also reported he is worried about his dog which has been at home without food or been outdoors since he and his presented to the ED. OBJECTIVE: Pt presented at edge of bed attempting to go to the bathroom. His was seated at bedside in a wheelchair. ? PAIN: denies VITALS: ?Monitored via telemetry throughout Therapeutic Activities ([id number]): Direct one-on-one instruction in dynamic activities to improve functional performance. Provided skilled cues and instruction on performance and technique throughout. ? ?? BED MOBILITY/TRANSFERS? Rolling L/R: independent Supine-sit: independent ? Sit-supine: independent? Sit-stand: supervision? Stand-sit: supervision? Bed-Chair: SBA ? Chair-bed: SBA Ambulation: without assistive device SBA 30 feet x 2 60 feet x 2 with cues for d irection and posture. ? STAIRS:2 6 steps and 3 4 steps with 1 rail SBA reciprocal pattern ? ASSESSMENT:?Patient demonstrates increased fluidity of movement this session as compared to initial assessment. Patient with no episodes of ataxic or rhythmic jerking movements of left upper extremity. Patient with improved stability in stand without upper extremity support. Session shortened by need to attend ECHO on initial attempt and then MRI at second attempt PLAN: Pt would benefit from skilled PT 1-2 times per day for global strengthening, transfers, ambulation, pain management and balance facilitation until medically appropriate for discharge TREATMENT CODE/TIME: [id number], [id number] DISCHARGE RECOMMENDATION: PT
[2024-07-16 11:37] VITALS: BP 128/58; PULSE 63; RESP 16; TEMP 36.7; O2SAT 97
--- NOTE | 2024-07-16 11:40 | CHAPLAIN ---
Warren was out of the room when I visited. His Trupti was there. She asked for helping in making a phone call. She had the wrong area code for [place] and when we tried to make the call a message said she needed to add more time to her phone. She said she's been hearing that message but she's not sure what to do about it. She said she prefers to use a landline phone at home as she can keep better track of messages left on the landline, but her removed the landline so Trupti would use to use the mobile phone. She has relatives in [place] that she likes to call but isn't sure how to do that with her mobile phone. Trupti said she relies on Warren for help with a great many things.
[2024-07-16] MEDS: Gadoterate meglumine 20 ML SYRINGE 15 ML IVP (11:57)
[2024-07-16] MEDS: Potassium Chloride 20 MEQ TABCR 40 MEQ PO (12:50)
--- NOTE | 2024-07-16 13:41 | PT.INTREAT ---
PT Notes Visit Reasons: Left upper extremity intermittent tremor with atax Date: 07/16/24 PRECAUTIONS: Fall risk, Standard SUBJECTIVE: Pt in bed when approached for therapy this afternoon, pt agrees to participating with therapy session OBJECTIVE: ? PAIN: Denies VITALS: monitored by nursing Therapeutic Activities [id number]: Direct one-on-one instruction in dynamic activities to improve functional performance. ?? BED MOBILITY/TRANSFERS? Rolling L/R: independent Supine-sit: ?independent? Sit-supine: ? independent? Sit-stand: ? independent? Stand-sit: ?independent? Bed-Chair:? independent? Chair-bed: independent? Provided skilled cues and instruction on performance and technique throughout. Gait Training [id number]: Direct one-on-one instruction and skilled instruction in: Movement sequencing Turning and movement with proper form Provided verbal cues for equipment management and technique Provided instruction in gait pattern Patient education regarding pacing and breathing techniques to maximize activity tolerance? GAIT? Assistive Device: ??None? Weight bearing: FWB Assist: ? Supervision ? Distance:?? ?200'x2 ? Deviation: ? Wide LINDSEY ? STAIRS:? ? ?1flight of stairs 12steps up/down right handrail, step over step supervision ? ASSESSMENT:?able to tolerate gait activity without LOB. PLAN: Continue with balance training, global strengthening and general conditioning for improved safety, mobility and activity tolerance until pt is ready for DC. TREATMENT CODE/TIME: [id number] 20mins (1:05-1:25pm)
--- NOTE | 2024-07-16 14:24 | DSE_ITS ---
Date of service: 07/16/24 Time of Service: 14:24 DS: Diagnosis Discharge Diagnosis (1) Ataxia: Status: Acute (2) Tremor of left hand: Status: Acute (3) Generalized weakness: Status: Acute (4) Frequent falls: Status: Chronic (5) Diffuse abdominal pain: Status: Chronic (6) Hyponatremia: Status: Acute (7) Type II diabetes mellitus: Status: Chronic (8) Essential hypertension: Status: Chronic (9) Hyperlipidemia: Status: Chronic (10) CKD (chronic kidney disease): Status: Chronic Discharge Plan Disposition Patient Disposition: Home W/Home Health Services Condition: Stable Discharge Details Reason For Visit: Left upper extremity intermittent tremor with atax Admit Date/Time: 07/15/24 19:50 Admit Provider: Justen Anderson Attending Provider: Justen Anderson Primary Care Provider: Ngozi Silva Hospital Course Hospital Course: This is an 83-year-old male patient past medical history of diabetes frequent falls who presented to the emergency department with an onset of left upper extremity tremors and ataxia that came on suddenly a few weeks prior to his presentation. He states that he has had generalized weakness and falls. He did undergo head CT and telemetry neuroconsultation with recommendations for MRI carotid ultrasound and echocardiogram. He was given aspirin. Recommendations were also placed for EEG which was not available on hospitalization. He was admitted to the medical surgical unit on telemetry remained in normal sinus rhythm. Echocardiogram was completed and did show an ejection fraction of 55% with no wall motion abnormalities no significant valvular disease with a right ventricular systolic pressure of 26 mmHg. Carotid ultrasound showed no evidence of internal carotid artery stenosis. 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 This finding was discussed with neurology and he was started on Keppra. It was thought that his presentation most likely secondary to seizure secondary to this structural defect. He will follow-up outpatient with neurology and will be ordered for EEG outpatient. He was advised to return sooner for new or worsening symptoms. There was no other changes made to his medications. Of note, There is a question of the colon wall thickening with malignancy and patient did have tubular adenoma with no follow-up colonoscopy in the past. This should be addressed but could be done as an outpatient. Patient did have minimal abdominal discomfort which has resolved. Discharge discussed with Dr. Corral Home Meds and New Rx's Prescriptions: New levetiracetam [Keppra] 500 mg tablet 500 mg PO BID Qty: 60 0RF Continued acetaminophen [Tylenol Extra Strength] 500 mg tablet 500 mg PO BID Patient Comments: Pt states he takes 500mg BID and no back spasms as a result.HE Jardiance 25 mg tablet 25 mg PO DAILY Qty: 90 3RF doxepin 25 mg capsule 25 mg PO QHS Qty: 30 3RF (DME) blood sugar diagnostic Strip See Dose Instructions .ROUTE .MEDSUPPLY Qty: 100 6RF Dose Instruction: As directed Rx Instructions: Test TID and PRN. atorvastatin 40 mg tablet See Rx Instructions .ROUTE .COMPLEX Qty: 90 3RF Dose Instruction: TAKE ONE TABLET BY MOUTH EVERY DAY Rx Instructions: TAKE ONE TABLET BY MOUTH EVERY DAY metformin 500 mg tablet See Rx Instructions .ROUTE .COMPLEX Qty: 360 3RF Dose Instruction: TAKE TWO TABLETS BY MOUTH TWICE A DAY Rx Instructions: TAKE TWO TABLETS BY MOUTH TWICE A DAY hydrochlorothiazide 25 mg tablet See Rx Instructions .ROUTE .COMPLEX Qty: 90 1RF Dose Instruction: TAKE ONE TABLET BY MOUTH EVERY DAY Rx Instructions: TAKE ONE TABLET BY MOUTH EVERY DAY lisinopril 10 mg tablet See Rx Instructions .ROUTE .COMPLEX Qty: 90 1RF Dose Instruction: TAKE ONE TABLET BY MOUTH EVERY DAY Rx Instructions: TAKE ONE TABLET BY MOUTH EVERY DAY citalopram 20 mg tablet See Rx Instructions .ROUTE .COMPLEX Qty: 90 1RF Dose Instruction: TAKE ONE TABLET BY MOUTH EVERY DAY Rx Instructions: TAKE ONE TABLET BY MOUTH EVERY DAY tamsulosin 0.4 mg capsule See Rx Instructions .ROUTE .COMPLEX Qty: 180 1RF Dose Instruction: TAKE TWO CAPSULES BY MOUTH EVERY DAY Rx Instructions: TAKE TWO CAPSULES BY MOUTH EVERY DAY glipizide 2.5 mg tablet extended release 24hr See Rx Instructions .ROUTE .COMPLEX Qty: 90 1RF Dose Instruction: TAKE ONE TABLET BY MOUTH EVERY DAY Rx Instructions: TAKE ONE TABLET BY MOUTH EVERY DAY cyclobenzaprine 5 mg tablet 5 mg PO QHS PRN (Reason: muscle spasm) Qty: 7 0RF sennosides [Natural Senna Laxative] 8.6 mg tablet 50 - 100 mg PO ONCE PRN bisacodyl [Alophen (bisacodyl)] 5 mg tablet,delayed release (DR/EC) 5 mg PO ONCE PRN perfect amino 5,000 mg PO DIRECTED pro dentin 20 mg PO DIRECTED calcium polycarbophil [Fiber (calcium polycarbophil)] 625 mg tablet 625 mg PO ONCE PRN Discharge Instructions Instructions: Seizures, Adult ED Additional Instructions: seizure precautions, no driving until cleared by neurology Stand Alone Forms: Nursing Discharge Form Referrals: Kirti Frazier MD [ [facility] STAFF PHYSICIAN] - (Called and left a message, if no call back by 07/19 please call and schedule a follow up appointment.) Ngozi Silva NP [Primary Care Provider] - 07/23/24 2:30 pm Activity:: Activity as Tolerated Equipment/Supplies:: No Equipment Needed Diet:: As Tolerated Discharge Orders Discharge Orders: Discharge Order (Routine); Ordered 07/16/24 Ordered By: Cathy Kenyon Other Ambulatory Orders: EEG(Regular) (Routine) Location: None Selected Ordered By: Cathy Kenyon Discharge Data Discharge Date/Time-TO BE ENTERED AT DEPARTURE: 07/16/24 15:44 DS: Summary Time Spent with Patient providing and/or coordinating discharge services: Greater than 30 minutes Status at Discharge Functional status at discharge: independent ambulation Overall status at discharge: patient is back to baseline Mental Status: mental status grossly normal Speech and Movement: speech and movement normal Mood: congruent mood Affect: normal affect Quality:SDOH Health Related Social Needs: Health related social needs transportation insecurity( Z59.82), problem related to primary support group(Z63.9) Exam Const General: cooperative, healthy appearing, comfortable and no acute distress Nutritional Appearance: average body habitus Orientation: alert, awake and oriented x3 Limitations: altered mental status HENMT Head: normal to inspection, normocephalic and atraumatic Face and sinus: normal facial exam Mouth: oral mucosae normal Throat: posterior oropharynx normal Chest Chest: normal inspection of the chest Resp Effort & Inspection: normal respiratory effort Auscultation: clear to auscultation bilaterally Cardio Rate: regular rate Rhythm: regular rhythm GI Inspection: normal to inspection Palpation: soft Auscultation: normal bowel sounds Skin General skin exam: no rashes or lesions noted Neuro General: patient alert, patient awake and patient oriented x3 Extrem General: normal to inspection Psych Appearance: grossly normal Mental Status: mental status grossly normal Speech and Movement: speech and movement normal Mood: congruent mood Affect: normal affect DS: Data Vitals/I&O Vitals and I&O: Vital Signs Temperature 36.7 C 07/16/24 11:37 Temperature Source Temporal Artery Scan 07/16/24 11:37 Pulse 63 07/16/24 11:37 Pulse Rhythm Regular 07/15/24 21:27 Respiratory Rate 16 07/16/24 11:37 Respiratory Effort Normal, Non-Labored 07/15/24 21:27 Respiratory Depth Normal 07/15/24 21:27 Respiratory Pattern Normal 07/15/24 21:27 Blood Pressure 128/58 L 07/16/24 11:37 Blood Pressure Mean 88 07/15/24 20:03 Pulse Oximetry 97 07/16/24 11:37 Oxygen Delivery Method Room Air 07/16/24 11:37 Oxygen Flow Rate 0 07/16/24 11:37 Pain Level 0 07/16/24 11:37 Comment stated fever per 07/15/24 14:51 Intake & Output 07/15/24 07/16/24 07/16/24 23:59 11:59 23:59 Intake Total 550 / 550 140 / 140 Output Total 200 / 200 Balance 350 / 350 140 / 140 Weight 74.984 kg 77 kg Intake: IV 20 / 20 Oral 550 / 550 120 / 120 Output: Urine 200 / 200 Data Completed and Pending Labs on day of discharge: Labs from last 24 hours 07/16/24 07/16/24 07/15/24 06:30 06:15 15:03 WBC 5.83 6.28 RBC 4.27 L 3.87 L Hgb 13.6 12.4 L Hct 39.7 L 35.9 L MCV 93 93 MCH 31.9 32.0 MCHC 34.3 34.5 RDW 12.1 11.9 Plt Count 198 190 MPV 10.8 10.8 Immature Gran % 0.3 Neutrophils % 72.6 Lymphocytes % 14.6 Monocytes % 8.1 Eosinophils % 4.1 Basophils % 0.3 Nucleated RBC % 0.0 Absolute Neutrophils 4.55 Absolute Lymphocytes 0.92 L Absolute Monocytes 0.51 Absolute Eosinophils 0.26 Absolute Basophils 0.02 PT 10.4 INR 1.0 VBG Lactate 1.3 Sodium 133 L 135 L Potassium 3.4 L 4.2 Chloride 98 101 Carbon Dioxide 24.4 24.2 Anion Gap 10.6 9.8 BUN 20 H 29 H Creatinine 1.1 1.5 H Est GFR (CKD-EPI 2020) 66.61 45.91 Glucose 238 H 522 H* Calcium 9.1 8.5 Magnesium 1.9 1.8 Total Bilirubin 1.30 H 1.14 H AST 15 13 L ALT 16 20 Alkaline Phosphatase 115 114 Troponin I 7 NT-Pro-B Natriuret Pep 156 Total Protein 6.9 6.2 L Albumin 2.9 L 2.8 L Procalcitonin < 0.10 TSH 2.38 Urine Color Urine Clarity Urine pH Ur Specific [place] Urine Protein Urine Ketones Urine Blood Urine Nitrite Urine Bilirubin Urine Urobilinogen Ur Leukocyte Esterase Urine RBC Urine WBC Ur Epithelial Cells Urine Crystals Urine Bacteria Urine Casts Urine Mucus Ur Culture Indicated? Urine Glucose COVID-19 Source Nasal/Nares SARS-CoV-2 (PCR) Negative 07/15/24 14:35 WBC RBC Hgb Hct MCV MCH MCHC RDW Plt Count MPV Immature Gran % Neutrophils % Lymphocytes % Monocytes % Eosinophils % Basophils % Nucleated RBC % Absolute Neutrophils Absolute Lymphocytes Absolute Monocytes Absolute Eosinophils Absolute Basophils PT INR VBG Lactate Sodium Potassium Chloride Carbon Dioxide Anion Gap BUN Creatinine Est GFR (CKD-EPI 2020) Glucose Calcium Magnesium Total Bilirubin AST ALT Alkaline Phosphatase Troponin I NT-Pro-B Natriuret Pep Total Protein Albumin Procalcitonin TSH Urine Color Yellow Urine Clarity Clear Urine pH 5.0 Ur Specific [place] <= 1.005 Urine Protein Negative Urine Ketones Trace H Urine Blood Trace-lysed H Urine Nitrite Negative Urine Bilirubin Negative Urine Urobilinogen 0.2 Ur Leukocyte Esterase Negative Urine RBC 0-2 Urine WBC 5-10 Ur Epithelial Cells Rare Urine Crystals Negative Urine Bacteria Rare Urine Casts Negative Urine Mucus Negative Ur Culture Indicated? No Urine Glucose >=1000 H COVID-19 Source SARS-CoV-2 (PCR) PFSH All Active Problems (Updated 07/17/24 @ 00:01 by BLAKE FRANCO) Diffuse abdominal pain (Chronic) Hyponatremia (Acute) Frequent falls (Chronic) Tremor of left hand (Acute) CKD (chronic kidney disease) (Chronic) Ataxia (Acute) Hyperglycemia (Acute) Generalized weakness (Acute) Focal motor seizure (Acute) Depression (Chronic) Depressive disorder (Chronic 10/22/11) Urinary hesitancy due to benign prostatic hyperplasia (Acute) Diverticula of colon (Acute) Tubular adenoma of colon (Acute 06/26/15) Type II diabetes mellitus (Chronic 12/29/12) A1C goal 7.5 Erectile dysfunction (Acute 10/22/11) Essential hypertension (Chronic 12/29/12) FRS 30% Hyperlipidemia (Chronic 12/24/12) PCEq risk 40%;baseline LDL 140 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) RBC microcytosis (Acute 12/30/12) NL B12 04/2005 Obesity (Acute 12/31/13) Other and unspecified hyperlipidemia (Acute 12/24/12) PCEq risk 40%;baseline LDL 140 Medical History High cholesterol Hypertension Depressive disorder, not elsewhere classified (10/22/11) Colonoscopy refused (04/06/18) Surgical History History of colonoscopy (~01/2023) 01/2023, 06/2019 Arthroscopy L knee Social History Smoking/Tobacco Use Status: Former Tobacco Use Smoking risk assessment performed?: Yes Alcohol Intake: current Alcohol Intake frequency: a few times a month Alcohol type: beer Drug use: Never Substance use type: does not use Household members: spouse Housing: house Communication Needs: Corrective Lenses What is your relationship status?: Panel score (0-1 are the most socially isolated patients): 1 What type of physical activity do you participate in: other Details: snow shove ling in winter and gardening in summer Frequency: daily Do you feel safe at home: Yes Do you feel safe in your relationship?: Yes Time Spent with Patient Time Spent with Patient: 45-69 minutes Time was spent: preparing to see the patient(eg.review tests), obtaining and/or reviewing separately otained hiistory, ordering medications,tests, procedures, indepentently interpreting results and counseling the patient
--- NOTE | 2024-07-16 14:28 | PDOC.HHF2F ---
Home Health Referral Home Health Orders Medical diagnosis necessitation home health referral: left arm ataxia Physical Therapist: Check all that apply Increase strength & endurance for safe mobility at home: Ordered To design/establish home maintenance program: Ordered Fall reduction therapy program for patient with history of frequent falls: Ordered Home safety evaluation and teaching/gait training including stair management (if applicable): Ordered Home Bound Status Describe why leaving home would require a considerable and taxing effort: Requires frequent rest periods and Safety Concerns: describe (freq falls) Encounter Date and Reason: I certify that a FTF encounter for this patient was performed on July 16, 2024 and that such encounter was related to the primary reason the patient requires home health services. The encounter was conducted in the following manner: By me as the certifying physician, TIME STUDY STATISTICIAN, PA or By an inpatient physician, TIME STUDY STATISTICIAN or PA during an inpatient stay who communicated findings to me, Certification And Authentication I certify that I composed the above information based on my clinical judgment relating to this patient's medical condition and, if applicable, clinical findings communicated to me by the NPP or inpatient physician who performed the FTF encounter. Name of Provider that will be monitoring home health services: Ngozi Silva
--- NOTE | 2024-07-16 14:29 | CMDISCH_ITS ---
Date of service: 07/16/24 Time of Service: 14:29 LACE Index Scoring Tool Questions: Length of Stay (in days): 1 Was the patient admitted via the E.D.?: Yes Comorbidities: Diabetes w/o Complication and Mild Liver/Renal Disease E.D. Visits: 1 Answers: Total Score: 8 Risk of Readmission: Low Risk Care Management Discharge Plan Reason for Hospitalization: Mitchel was admitted into observation status yesterday for a work up due to new onset of left upper extremity tremor and ataxia over the last couple of weeks. He also has generalized weakness and falls. He underwent the TIA protocol, and is cleared for discharge. Mitchel is independent at baseline, he still drives. He lives at home with his , Trupti. They have no real supports in the area. Mitchel is open to having HH PT. Discharge Plan: Mitchel is discharged home today with new orders for HH PT, and a new order for Keppra based on teleneuro consult. Mitchel will f/u with his PCP and will also need to f/u with the neurologist for an EEG. He will continue per his prescribed plan of care. Mitchel and his will transport home via [facility] private vehicle as arranged by CM. Patient/Family Education Needs: Review of discharge instructions, new medication instruction, activity, limitations - no driving until EEG and discuss Ask me 3 Services Needed at Discharge: Home Health Care Services and Physical Therapy (new referral was placed.) SDOH Health Related Social Needs: Health related social needs transportation insecurity( Z59.82), problem re lated to primary support group(Z63.9) Health related social needs: transportation insecurity(Z59.82) and problem related to primary support group(Z63.9)
[2024-07-16] MEDS: levETIRAcetam 500 MG TAB PO (14:52)
[2024-07-16 15:18] VITALS: BP 96/53; PULSE 98; RESP 18; TEMP 36.4; O2SAT 97
== END 2024-07-16 15:44 | disposition home health service (06) ==
LOC: ER 19:08 → MS 21:11
PROVIDERS: Admitting Provider Family Medicine; Emergency Provider Student in an Organized Health Care Education/Training Program; PCP Nurse Practitioner; Visit Provider Family Medicine
DX: R27.0 Ataxia, unspecified (principal); R25.1 Tremor, unspecified; R90.89 Other abnormal findings on diagnostic imaging of central nervous system; R53.1 Weakness; R29.6 Repeated falls; R10.84 Generalized abdominal pain; E87.1 Hypo-osmolality and hyponatremia; E11.22 Type 2 diabetes mellitus with diabetic chronic kidney disease; E11.65 Type 2 diabetes mellitus with hyperglycemia; N18.31 Chronic kidney disease, stage 3a; I12.9 Hypertensive chronic kidney disease with stage 1 through stage 4 chronic kidney disease, or unspecified chronic kidney disease; E78.2 Mixed hyperlipidemia; Z79.84 Long term (current) use of oral hypoglycemic drugs; Z79.899 Other long term (current) drug therapy; F32.A Depression, unspecified; N40.1 Benign prostatic hyperplasia with lower urinary tract symptoms; R39.11 Hesitancy of micturition; K57.30 Diverticulosis of large intestine without perforation or abscess without bleeding; Z86.0101 Personal history of adenomatous and serrated colon polyps; D63.1 Anemia in chronic kidney disease; Z59.82 Transportation insecurity
CPT/HCPCS: 00123; 36415; 36416; 70553; 80053; 82962; 84145; 85027; 87635; 93005; 93306; 96372; 96374; 97162; 97530; 99285; 70450; 74177; 81003; 81015; 83605; 83735; 83880; 84443; 84484; 85025; 85610; 93010; 93880; 99223; 99239; G0378; J1644; J1815; J3490

== ENCOUNTER 2024-07-18 14:36 | Emergency (ER) | payer MEDICARE, SELFPAY ==
[2024-07-18] VITALS (31 sets, daily range): BP systolic 77–133; BP diastolic 46–104; PULSE 78–113; RESP 14–26; TEMP 36.6–37.9; O2SAT 92–100
--- NOTE | 2024-07-18 14:30 | RT.EKG_ITS ---
APPROVED REPORT Exam: Resting ECG Reason for Exam: Chest pain Patient Location: E HR:98 bpm ECG Measurements Heart Rate 98 AXIS VA 163 P -24 QRSd 85 QRS 72 QT 362 T 34 QTc 463 Conclusion Sinus arrhythmia, rate 98 No interval abnormalities No STEMI
--- NOTE | 2024-07-18 15:15 | DI.RAD_ITS ---
Exam(s) XR PORTABLE CHEST AP EXAM: XR PORTABLE CHEST AP CLINICAL HISTORY: Tachy, low grade temp, eval PNA TECHNIQUE: 2D digital imaging was performed. COMPARISON: No exams were available for comparison FINDINGS: Multiple leads are coiled over the chest. LUNGS: Clear. No pleural abnormality seen. HEART: Normal size. AORTA: Normal diameter. BONES: Unremarkable for age. Soft tissues: Unremarkable. IMPRESSION: No acute findings. DATA REPOSITORY: RADIATION DOSE DELIVERED:
[2024-07-18 15:23] LABS: Abs Immature Grans 0.04 10^3/uL (0.0-0.06); Absolute Basophil Count 0.03 10^3/uL (0.0-0.2); Absolute Eosinophil Count 0.14 10^3/uL (0.0-0.7); Absolute Lymphocyte Count 1.21 10^3/uL (1.2-3.4); Absolute Monocyte Count 0.47 10^3/uL (0.1-0.8); Absolute Neutrophil Count 4.52 10^3/uL (1.2-6.7); Basophils % 0.5 %; Eosinophils % 2.2 %; HCT 43.4 % (40.0-50.0); HGB 14.5 g/dL (13.5-17.5); Immature Grans % 0.6 %; Lymphocytes % 18.9 %; MCH 31.9 pg (27.0-33.0); MCHC 33.4 % (32.0-36.0); MCV 95 fL (80-95); MPV 10.6 fL (8.0-11.0); Monocytes % 7.3 %; Neutrophils % 70.5 %; Platelet Count 221 10^3/uL (130-400); RBC 4.55 10^6/uL (4.36-5.78); RDW 12.4 % (11.8-14.1); RDW-SD 43.8 fL; WBC 6.41 10^3/uL (4.4-10.8)
--- NOTE | 2024-07-18 15:27 | ED.GENADUL_ITS ---
Discharge Plan Disposition Patient Disposition: Home Condition: Stable Discharge Details Clinical Impression: Fatigue, CKD (chronic kidney disease), Type II diabetes mellitus, Essential hypertension, Hyperlipidemia Primary Care Provider: Ngozi Silva ED Provider: Kirti Das Home Meds and New Rx's Prescriptions: No Action acetaminophen [Tylenol Extra Strength] 500 mg tablet 500 mg PO BID Patient Comments: Pt states he takes 500mg BID and no back spasms as a result.HE Jardiance 25 mg tablet 25 mg PO DAILY Qty: 90 3RF doxepin 25 mg capsule 25 mg PO QHS Qty: 30 3RF (DME) blood sugar diagnostic Strip See Dose Instructions .ROUTE .MEDSUPPLY Qty: 100 6RF Dose Instruction: As directed Rx Instructions: Test TID and PRN. atorvastatin 40 mg tablet See Rx Instructions .ROUTE .COMPLEX Qty: 90 3RF Dose Instruction: TAKE ONE TABLET BY MOUTH EVERY DAY Rx Instructions: TAKE ONE TABLET BY MOUTH EVERY DAY metformin 500 mg tablet See Rx Instructions .ROUTE .COMPLEX Qty: 360 3RF Dose Instruction: TAKE TWO TABLETS BY MOUTH TWICE A DAY Rx Instructions: TAKE TWO TABLETS BY MOUTH TWICE A DAY hydrochlorothiazide 25 mg tablet See Rx Instructions .ROUTE .COMPLEX Qty: 90 1RF Dose Instruction: TAKE ONE TABLET BY MOUTH EVERY DAY Rx Instructions: TAKE ONE TABLET BY MOUTH EVERY DAY lisinopril 10 mg tablet See Rx Instructions .ROUTE .COMPLEX Qty: 90 1RF Dose Instruction: TAKE ONE TABLET BY MOUTH EVERY DAY Rx Instructions: TAKE ONE TABLET BY MOUTH EVERY DAY citalopram 20 mg tablet See Rx Instructions .ROUTE .COMPLEX Qty: 90 1RF Dose Instruction: TAKE ONE TABLET BY MOUTH EVERY DAY Rx Instructions: TAKE ONE TABLET BY MOUTH EVERY DAY tamsulosin 0.4 mg capsule See Rx Instructions .ROUTE .COMPLEX Qty: 180 1RF Dose Instruction: TAKE TWO CAPSULES BY MOUTH EVERY DAY Rx Instructions: TAKE TWO CAPSULES BY MOUTH EVERY DAY glipizide 2.5 mg tablet extended release 24hr See Rx Instructions .ROUTE .COMPLEX Qty: 90 1RF Dose Instruction: TAKE ONE TABLET BY MOUTH EVERY DAY Rx Instructions: TAKE ONE TABLET BY MOUTH EVERY DAY cyclobenzaprine 5 mg tablet 5 mg PO QHS PRN (Reason: muscle spasm) Qty: 7 0RF sennosides [Natural Senna Laxative] 8.6 mg tablet 50 - 100 mg PO ONCE PRN bisacodyl [Alophen (bisacodyl)] 5 mg tablet,delayed release (DR/EC) 5 mg PO ONCE PRN perfect amino 5,000 mg PO DIRECTED pro dentin 20 mg PO DIRECTED calcium polycarbophil [Fiber (calcium polycarbophil)] 625 mg tablet 625 mg PO ONCE PRN levetiracetam [Keppra] 500 mg tablet 500 mg PO BID Qty: 60 0RF Discharge Instructions Instructions: Fatigue (DC) Additional Instructions: You were seen in the emergency department today for evaluation of sleepiness and fatigue. In our department you have a full physical examination performed, had laboratory studies that showed no significant changes, and had an x-ray of your chest. It is possible that you are starting to develop a pneumonia in your left lower lung, but at this time you are not experiencing any fevers, shortness of breath, or other concerning symptoms that would require you to start antibiotics. Please monitor your symptoms at home, and if you start to become worse please return to the emergency department for reevaluation. You also need to follow-up with your primary care provider as discussed at your discharge yesterday from this hospital for EEG, and medication management. Thank you for allowing us to be part of your care. HPI General Date/Time Provider Initiated Documentation: 07/18/24 14:39 . Limitations to Documentation: no limitations . Information obtained by: patient, family, EMS and old records reviewed . HPI Narrative: HPI: This is an 83-year-old male patient with a past medical history significant for CKD, hyperlipidemia, diabetes, and hypertension, who had a recent admission for ataxia and tremor thought to be potentially focal seizures. He was discharged yesterday, and states that this morning he woke up and felt very fatigued. He felt like everybody was bothering him, and not allowing him to sleep. The was concerned that the patient did not want to get up and move about, was not eating and drinking, and summoned EMS for transport. He was recently started on Keppra. The patient reports that other than tired he is not experiencing any symptoms. He has not taken any falls, has not had any shaking or seizure-like episodes. He states that he is not experiencing pain, nausea. He states that his breathing feels a little heavy, but he is not having cough or shortness of breath. Denies dysuria, abdominal pain, diarrhea. Exam: Gen: Awake and alert, in no apparent distress HEENT: Non-icteric sclera, pupils are equal and reactive at 2 mm bilaterally. Neck: Supple Lungs: No apparent respiratory distress, normal respiratory effort. Lung sounds clear and equal bilaterally CV: Appears well perfused, heart with tachycardic rate but regular rhythm, no murmurs Abdomen: Non-distended, soft, nontender MSK: Moves 4 extremities without apparent limitation in ROM Skin: Visualized skin without rashes, cyanosis. Neuro: Stands and pivots to the stretcher without difficulty, alert and oriented, cranial nerves II through XII intact and symmetrical bilaterally, 5 out of 5 strength x 4 extremities with no sensory deficits Psych: Appropriate for situation. MDM: This is an 83-year-old male patient presenting for evaluation of increasing fatigue in the setting of recent discharge from the hospital for tremor and ataxia. My differential includes but is not limited to metabolic electrolyte derangement, dehydration or kidney injury, certainly considered arrhythmia, ACS. I considered infectious abnormalities including pneumonia, UTI. The patient has not sustained any falls or injuries, does not have focal neurodeficits and I have a lower concern for intracranial hemorrhage, stroke. No seizure-like activity reported by patient or family. Will obtain an EKG and laboratory workup to include CBC, CMP, magnesium, troponin, urinalysis, and will obtain a chest x-ray. ED Course: I reviewed the patient's EKG, which shows a sinus arrhythmia with a variable rate, intermittently mildly tachycardic, but no evidence of ischemia, interval abnormality. Laboratory studies were reviewed, showing no leukocytosis, anemia or thrombocytopenia. Chemistry panel demonstrates a slight decrease in his bicarb from priors, with a mild elevation in his anion gap. Kidney dysfunction is appreciated within the range of normal based on prior studies. No evidence of liver dysfunction, troponin negative x 2 checks. TSH was obtained and was slightly high but not such that I am concerned for's significant hypothyroidism or myxedema coma as the cause of his symptoms. Given the modest elevation in blood sugar and the slight anion gap elevation, I certainly considered dehydration and starvation ketoacidosis, as well as DKA, euglycemic DKA. I obtained a VBG, which did not show any sign of acidosis, hypercarbia. Urine did have some ketones, no sign of infection, trace hematuria is appreciated. This patient does not meet criteria for DKA,, but I did provide him with a meal to ensure that he can maintain his hydration and nutrition. Chest x-ray was obtained, did show a subtle opacity which per radiology could represent an early or developing pneumonia. Given that the patient has been afebrile, without cough, hypoxia, or shortness of breath, I feel that watchful waiting is appropriate, and did not initiate antibiosis. The patient road tested successfully, with steady gait, and he is desiring of discharge home. As his workup has been largely reassuring, I feel that this is reasonable and we encouraged him to keep with his outpatient follow-up plans as noted in his discharge summary. He and his are both understanding of the evaluation that has been going today in the next [facility] management of his chronic health conditions. At this time, the patient has had a full medical evaluation and is safe for discharge to home. They are hemodynamically stable, ambulatory, and tolerating PO. They are understanding of the follow-up plan and return precautions. They left our facility without incident. Kirti Das MD Related Data Home Medications ?Medication ?Instructions ?Recorded ?Confirmed cyclobenzaprine 5 mg tablet 5 mg PO QHS PRN muscle spasm #7 06/21/22 07/18/24 tabs acetaminophen 500 mg tablet 500 mg PO BID 11/12/22 07/18/24 (Tylenol Extra Strength) blood sugar diagnostic #100 ea 12/09/22 07/18/24 atorvastatin 40 mg tablet See Rx Instructions .Route 06/24/23 07/18/24 .COMPLEX #90 tabs metformin 500 mg tablet See Rx Instructions .Route 09/15/23 07/18/24 .COMPLEX #360 tabs doxepin 25 mg capsule 25 mg PO QHS #30 caps 01/20/24 07/18/24 empagliflozin 25 mg tablet 25 mg PO DAILY #90 tabs 01/20/24 07/18/24 (Jardiance) citalopram 20 mg tablet See Rx Instructions .Route 05/26/24 07/18/24 .COMPLEX #90 tabs glipizide 2.5 mg tablet, extended See Rx Instructions .Route 05/26/24 07/18/24 release 24 hr .COMPLEX #90 tabs hydrochlorothiazide 25 mg tablet See Rx Instructions .Route 05/26/24 07/18/24 .COMPLEX #90 tabs lisinopril 10 mg tablet See Rx Instructions .Route 05/26/24 07/18/24 .COMPLEX #90 tabs tamsulosin 0.4 mg capsule See Rx Instructions .Route 05/26/24 07/18/24 .COMPLEX #180 caps bisacodyl 5 mg tablet,delayed 5 mg PO ONCE PRN 07/15/24 07/18/24 release (Alophen (bisacodyl)) calcium polycarbophil 625 mg 625 mg PO ONCE PRN 07/15/24 07/18/24 tablet (Fiber (calcium polycarbophil)) perfect amino 5,000 mg PO DIRECTED 07/15/24 07/18/24 pro dentin 20 mg PO DIRECTED 07/15/24 07/18/24 sennosides 8.6 mg tablet (Natural 50 - 100 mg PO ONCE PRN 07/15/24 07/18/24 Senna Laxative) levetiracetam 500 mg tablet 500 mg PO BID #60 tabs 07/16/24 07/18/24 (Keppra) Previous Rx's ?Medication ?Instructions ?Recorded cyclobenzaprine 5 mg tablet 5 mg PO QHS PRN muscle spasm #7 06/21/22 tabs blood sugar diagnostic #100 ea 12/09/22 atorvastatin 40 mg tablet See Rx Instructions .Route 06/24/23 .COMPLEX #90 tabs metformin 500 mg tablet See Rx Instructions .Route 09/15/23 .COMPLEX #360 tabs doxepin 25 mg capsule 25 mg PO QHS #30 caps 01/20/24 empagliflozin 25 mg tablet 25 mg PO DAILY #90 tabs 01/20/24 (Jardiance) citalopram 20 mg tablet See Rx Instructions .Route 05/26/24 .COMPLEX #90 tabs glipizide 2.5 mg tablet, extended See Rx Instructions .Route 05/26/24 release 24 hr .COMPLEX #90 tabs hydrochlorothiazide 25 mg tablet See Rx Instructions .Route 05/26/24 .COMPLEX #90 tabs lisinopril 10 mg tablet See Rx Instructions .Route 05/26/24 .COMPLEX #90 tabs tamsulosin 0.4 mg capsule See Rx Instructions .Route 05/26/24 .COMPLEX #180 caps levetiracetam 500 mg tablet 500 mg PO BID #60 tabs 07/16/24 (Keppra) Allergies Allergy/AdvReac Type Severity Reaction Status Date / Time No Known Allergies Allergy Verified 07/18/24 14:42 General Stated Complaint: GenMedical ALISSA: 3 Course Vital Signs Vital signs: Vital Signs Temperature 37.9 C H 07/18/24 14:39 Pulse 105 H 07/18/24 14:39 Respiratory Rate 18 07/18/24 14:39 Blood Pressure 90/46 L 07/18/24 14:39 Pulse Oximetry 96 07/18/24 14:39 Temperature 37.9 C H 07/18/24 14:42 Temperature Source Temporal Artery Scan 07/18/24 14:42 Pulse 105 H 07/18/24 14:42 Respiratory Rate 18 07/18/24 14:42 Respiratory Effort Normal, Non-Labored 07/18/24 14:43 Blood Pressure 90/46 L 07/18/24 14:42 Blood Pressure Position Supine 07/18/24 14:42 Pulse Oximetry 96 07/18/24 14:42 Oxygen Delivery Method Room Air 07/18/24 14:42 Oxygen Flow Rate 0 07/18/24 14:42 Medical Decision Making Quality:SDOH Health Related Social Needs: Health related social needs transportation insecurity( Z59.82), problem related to primary support group(Z63.9) PFSH All Active Problems (Updated 07/18/24 @ 17:50 by Kirti Das MD) Fatigue (Acute) Diffuse abdominal pain (Chronic) Hyponatremia (Acute) Frequent falls (Chronic) Tremor of left hand (Acute) CKD (chronic kidney disease) (Chronic) Ataxia (Acute) Hyperglycemia (Acute) Generalized weakness (Acute) Focal motor seizure (Acute) Depression (Chronic) Depressive disorder (Chronic 10/22/11) Urinary hesitancy due to benign prostatic hyperplasia (Acute) Diverticula of colon (Acute) Tubular adenoma of colon (Acute 06/26/15) Type II diabetes mellitus (Chronic 12/29/12) A1C goal 7.5 Erectile dysfunction (Acute 10/22/11) Essential hypertension (Chronic 12/29/12) FRS 30% Hyperlipidemia (Chronic 12/24/12) PCEq risk 40%;baseline LDL 140 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) RBC microcytosis (Acute 12/30/12) NL B12 04/2005 Obesity (Acute 12/31/13) Other and unspecified hyperlipidemia (Acute 12/24/12) PCEq risk 40%;baseline LDL 140 Medical History High cholesterol Hypertension Depressive disorder, not elsewhere classified (10/22/11) Colonoscopy refused (04/06/18) Surgical History History of colonoscopy (~01/2023) 01/2023, 06/2019 Arthroscopy L knee Social History Smoking/Tobacco Use Status: Former Tobacco Use Smoking risk assessment performed?: Yes Alcohol Intake: current Alcohol Intake frequency: a few times a month Alcohol type: beer Drug use: Never Substance use type: does not use Household members: spouse Housing: house Communication Needs: Corrective Lenses What is your relationship status?: Panel score (0-1 are the most socially isolated patients): 1 What type of physical activity do you participate in: other Details: snow shoveling in winter and gardening in summer Frequency: daily Do you feel safe at home: Yes Do you feel safe in your relationship?: Yes PAWSS Have you Been Recently Intoxicated or Drunk Within the Last 30 days?: No Have you Ever Experienced Previous Episodes of Alcohol Withdrawal?: No Have you ever Experienced Withdrawal Seizures?: No Have you ever Experienced Delirium Tremens(DT)s?: No Have you ever undergone Alcohol Rehabilitation Treatment (i.e, inpt ot outpatient treatment programs)?: No Have you ever Experienced Blackouts?: No Have you ever Combined Alcohol with other Downers within the last 90 days?: No Have you ever Combined Alcohol with any other Substance of Abuse during the last 90 days?: No Positive Blood Alcohol level on Presentation? [PCS.BAL]: No Evidence of Increased Autonomic Activity (i.e. HR>120, tremor, sweating, agitation, nausea)?: No Result: 0
[2024-07-18 15:46] LABS: Bilirubin Negative (Negative); Blood Trace-lysed (Negative); Clarity Clear (Clear); Glucose 500 mg/dL (Negative); Ketones 15 mg/dL (Negative); Leukocyte Esterase Negative (Negative); Nitrite Negative (Negative); Specific Gravity 1.015 (1.005-1.025); Urobilinogen 0.2 mg/dL (Up to 0.2)
[2024-07-18 15:48] LABS: ALT 17 U/L (16-63); AST 13 U/L (15-37); Albumin 3.1 g/dL (3.4-5.0); Alkaline Phosphatase 121 U/L (46-116); Anion Gap 18.8 mmol/L (3-11); BUN 31 mg/dL (7-18); Bilirubin, Total 1.03 mg/dL (0.2-1.0); CO2 20.2 mmol/L (21.0-32.0); CREATININE 1.7 mg/dL (0.70-1.30); Calcium 9.2 mg/dL (8.5-10.1); Chloride 101 mmol/L (98-107); Estimated GFR 39.51 (mL/min/1.73m2); Glucose 244 mg/dL (74-106); Magnesium 1.9 mg/dL (1.8-2.4); Potassium 4.3 mmol/L (3.5-5.1); Sodium 140 mmol/L (136-145); TSH (W/Ref FT4) 4.83 uIU/mL (0.36-3.74); Total Protein 7.2 g/dL (6.4-8.2); Troponin I 8 ng/L (<or=76)
[2024-07-18 16:21] LABS: Bacteria Few HPF (Negative); Epithelial Cells Rare HPF (Negative); Mucus Trace (Negative)
[2024-07-18 16:22] LABS: C & S Indicated? No; Casts 0-2 Hyaline LPF (Negative)
[2024-07-18 16:28] LABS: BE (Venous) -7 mmol/L (-2-3); HCO3 (Venous) 19 mmol/L (23-28); O2 Sat (Venous) 88 %; TCO2 (Venous) 17 mmol/L (24-29); pCO2 (Venous) 36 mmHg (41-51); pH (Venous) 7.33 (7.31-7.41); pO2 (Venous) 57 mmHg
[2024-07-18 16:57] LABS: Troponin I 9 ng/L (<or=76)
--- NOTE | 2024-07-18 17:11 | DI.VRAD_ITS ---
PROCEDURE INFORMATION: Exam: XR Chest Exam date and time: 07/18/2024 4:00 PM Age: 83 years old Clinical indication: Other: Tachy, low grade temp, eval pna TECHNIQUE: Imaging protocol: Radiologic exam of the chest. Views: 1 view. COMPARISON: CT ABDOMEN PELVIS W 07/15/2024 4:10 PM FINDINGS: Lungs: Patchy atelectatic changes left greater than right lower lobe of the lung early pneumonia cannot be excluded. Pleural spaces: There is no evidence of pneumothorax. There are no pleural effusions present. Heart/Mediastinum: The cardiac structures are normal. Vasculature: The aorta demonstrates mild atherosclerotic calcification. Bones/joints: The skeletal structures and soft tissues show no evidence of fracture or other acute processes. Soft tissues: The soft tissues of the extrathoracic region are unremarkable. IMPRESSION: Patchy atelectatic changes left greater than right lower lobe of the lung early pneumonia cannot be excluded. Dictated and Authenticated by: Nael Thompson MD. Ordering:FAWN Hassan MD
== END 2024-07-18 18:21 | disposition home or self-care (01) ==
PROVIDERS: Emergency Provider Emergency Medicine; PCP Nurse Practitioner
DX: R53.83 Other fatigue (principal); E11.22 Type 2 diabetes mellitus with diabetic chronic kidney disease; I12.9 Hypertensive chronic kidney disease with stage 1 through stage 4 chronic kidney disease, or unspecified chronic kidney disease; N18.9 Chronic kidney disease, unspecified; E78.5 Hyperlipidemia, unspecified; Z79.84 Long term (current) use of oral hypoglycemic drugs; Z87.891 Personal history of nicotine dependence
CPT/HCPCS: 36415; 80053; 82805; 93005; 99284; 71045; 81003; 81015; 83735; 84439; 84443; 84484; 85025; 93010